=== PATIENT | female | born 1945 | race Two or more races ===

== ENCOUNTER 2016-08-18 13:03 | Inpatient (IN) | payer MEDICARE ==
[~2016-08-18] VITALS: Ht 162.6 cm; Wt 54.4 kg
[2016-08-18] MEDS ORDERED: IV NS 0.9% 1,000 ML BAG IV ONE ×2 (13:30→14:30)
[2016-08-18 13:34] LABS: BASOPHILS # (AUTO) 0.6 /CMM (0.0-0.2); BASOPHILS % (AUTO) 2.8 % (0.0-2.0); DIFF TOTAL % 100 %; EOSINOPHILS % (AUTO) 0.1 % (0.0-6.0); HEMATOCRIT 55 % (33-45); HEMOGLOBIN 17.4 g/dL (11.5-14.8); LYMPHOCYTES # (AUTO) 1.5 /CMM (0.8-4.8); LYMPHOCYTES % (AUTO) 6.6 % (20.0-44.0); MEAN CORPUSCULAR HEMOGLOBIN 31 PG (26.0-33.0); MEAN CORPUSCULAR HGB CONC 32 g/dl (31.0-36.0); MEAN CORPUSCULAR VOLUME 96 fL (82-100); MONOCYTES # (AUTO) 0.4 /CMM (0.1-1.30); MONOCYTES % (AUTO) 1.6 % (2.0-12.0); NEUTROPHILS # (AUTO) 19.8 /CMM (1.8-8.9); NEUTROPHILS % (AUTO) 88.9 % (43.0-81.0); PLATELET COUNT (AUTO) 342 /CMM (150-450); RED BLOOD CELL COUNT(AUTO) 5.67 MIL/uL (4.0-5.2); WHITE BLOOD COUNT (AUTO) 22.3 K/uL (4.3-11.0)
[2016-08-18] MEDS ORDERED: IV NS 0.9% 1,000 ML ONE ×2 (13:39→14:25)
[2016-08-18] MEDS ORDERED: IV SET PRIMARY PUMP SET 1 EA INFUS.SET MC ONE ×5 (13:39→18:11)
[2016-08-18] MEDS ORDERED: GALA12TA PO (13:46)
[2016-08-18] MEDS ORDERED: CARB-94 PO (13:46)
[2016-08-18] MEDS ORDERED: ZINC220C8 PO (13:46)
[2016-08-18] MEDS ORDERED: ASCO500T9 PO (13:46)
[2016-08-18] MEDS ORDERED: BUPR75TA8 PO (13:46)
[2016-08-18] MEDS ORDERED: CARB1TAB60 PO (13:46)
[2016-08-18] MEDS ORDERED: MULT-24 PO (13:46)
[2016-08-18] MEDS ORDERED: QUET25TA PO (13:46)
[2016-08-18] MEDS ORDERED: IRBE300T19 PO (13:46)
[2016-08-18] MEDS ORDERED: ATOR10TA PO (13:46)
[2016-08-18] MEDS ORDERED: OMEP20CA10 PO (13:46)
[2016-08-18 13:50] LABS: INR 1.16 (0.87-1.13); PROTHROMBIN TIME 12.2 SECS (9.5-12.7)
[2016-08-18 13:51] LABS: ALBUMIN 2.8 g/dL (3.4-5.0); BILIRUBIN,DIRECT 0.1 mg/dL (0.0-0.2); BILIRUBIN,TOTAL 0.4 mg/dL (0.2-1.0); CALCIUM, SERUM 9.4 mg/dL (8.5-10.1); CREATININE 1.1 mg/dL (0.6-1.3); INDIRECT BILIRUBIN 0.3 mg/dL (0.0-1.1); POTASSIUM 3.6 mmol/L (3.5-5.1); TOTAL PROTEIN, SERUM 7.9 g/dL (6.4-8.2)
[2016-08-18 13:57] LABS: KETONES,URINE Negative (NEGATIVE); LEUKOCYTE ESTERASE ,URINE Small (NEGATIVE); PH,URINE 5.5 (5.0-8.0)
[2016-08-18 13:58] LABS: TROPONIN I 0.019 ng/mL (0.00-0.056)
[2016-08-18 14:06] LABS: LACTIC ACID 1.3 mmol/L (0.4-2.0)
[2016-08-18 14:06] LABS: ADD UA MICROSCOPIC YES
[2016-08-18 14:07] LABS: ADD URINE CULTURE YES; RBC,URINE 0-2 /HPF (0-2)
[2016-08-18] MEDS ORDERED: LEVOFLOXACIN 750 MG /D5W 150ML 150 ML IV ONE ×2 (14:30→14:35)
[2016-08-18] MEDS ORDERED: PIPERACILLIN /TAZOBACTAM 3.375 G in IV D5W 50 ML IV ONE (14:30)
[2016-08-18 15:56] LABS: EOSINOPHILS % (MANUAL) 0 % (0-4); LYMPHOCYTES % (MANUAL) 6 % (16-48)
[2016-08-18 15:57] LABS: BASOPHILS % (MANUAL) 0 % (0.0-2.0); PLATELET ESTIMATE ADEQUATE; RBC MORPHOLOGY COMMENT NORMAL RBC MORPH
[2016-08-18] MEDS ORDERED: IV 1/2NS 1000 ML 1,000 ML IV PRN (16:37)
[2016-08-18 16:40] VITALS: BP 128/80
[2016-08-18] MEDS ORDERED: MAG HYDROX/AL HYDROX/SIMETH 30 ML UDC PO PRN (17:00)
[2016-08-18] MEDS: CARBIDOPA/LEVODOPA 25/250 MG 1 UDTAB PO SCH (17:00)
[2016-08-18] MEDS ORDERED: Z GUARD REMEDY 2 OZ OINT TP PRN (17:00)
[2016-08-18] MEDS ORDERED: ONDANSETRON HCL/PF 4 MG/2 ML VIAL IVP PRN (17:00)
[2016-08-18] MEDS ORDERED: HYDROCODONE/APAP 5/325MG 1 EACH TABLET PO PRN (17:00)
[2016-08-18] MEDS: buPROPion 75 MG TABLET PO SCH (17:00)
[2016-08-18] MEDS ORDERED: ACETAMINOPHEN 325 MG TABLET PO PRN (17:00)
[2016-08-18] MEDS ORDERED: MAGNESIUM HYDROXIDE 30 ML UDC PO PRN (17:00)
[2016-08-18] MEDS ORDERED: ZOLPIDEM TARTRATE 5 MG TABLET PO PRN (17:00)
[2016-08-18] MEDS: GALANTAMINE HYDROBROMIDE 4 MG TABLET PO SCH (17:30)
[2016-08-18] MEDS ORDERED: FEE PK DOSING 1 MIN EA MC ONE (18:46)
[2016-08-18 20:00] VITALS: BP 135/84
[2016-08-18] MEDS ORDERED: SECONDARY IV SET 1 EA INFUS.SET MC ONE (20:20)
[2016-08-18] MEDS: VANCOMYCIN 1 GM in IV D5W 250 ML IV SCH (20:25)
[2016-08-18 20:52] LABS: CALCIUM, SERUM 8.2 mg/dL (8.5-10.1); CREATININE 1.1 mg/dL (0.6-1.3); POTASSIUM 3.3 mmol/L (3.5-5.1)
[2016-08-18] MEDS: CARBIDOPA/LEV CR 50/200 MG 1 UDTAB.SA PO SCH (22:00)
[2016-08-18] MEDS: ATORVASTATIN 10 MG TABLET PO SCH (22:00)
[2016-08-18] MEDS: QUETIAPINE FUMARATE 25 MG TABLET PO SCH (22:00)
[2016-08-18] MEDS ORDERED: IV D5W 1,000 ML IV ONE (23:19)
[2016-08-18] MEDS: IV D5W 1,000 ML IV PRN (23:24)
[2016-08-19] VITALS: BP 133/86
[2016-08-19] MEDS ORDERED: SECONDARY IV SET 1 EA INFUS.SET MC ONE (01:19)
[2016-08-19] MEDS: PIPERACILLIN /TAZOBACTAM 3.375 G in IV D5W 50 ML IV SCH ×4 (01:22→17:51)
[2016-08-19 04:00] VITALS: BP 130/78
[2016-08-19 06:51] LABS: DIFF TOTAL % 100 %; EOSINOPHILS % (AUTO) 0.1 % (0.0-6.0); HEMATOCRIT 43 % (33-45); HEMOGLOBIN 14.1 g/dL (11.5-14.8); LYMPHOCYTES # (AUTO) 1.1 /CMM (0.8-4.8); LYMPHOCYTES % (AUTO) 5.9 % (20.0-44.0); MEAN CORPUSCULAR HEMOGLOBIN 31 PG (26.0-33.0); MEAN CORPUSCULAR HGB CONC 33 g/dl (31.0-36.0); MEAN CORPUSCULAR VOLUME 96 fL (82-100); MONOCYTES # (AUTO) 0.4 /CMM (0.1-1.30); MONOCYTES % (AUTO) 2.2 % (2.0-12.0); NEUTROPHILS # (AUTO) 16.9 /CMM (1.8-8.9); NEUTROPHILS % (AUTO) 91.8 % (43.0-81.0); PLATELET COUNT (AUTO) 256 /CMM (150-450); WHITE BLOOD COUNT (AUTO) 18.5 K/uL (4.3-11.0)
[2016-08-19 07:13] LABS: CALCIUM, SERUM 8.5 mg/dL (8.5-10.1); PHOSPHORUS 2.7 mg/dL (2.5-4.9); POTASSIUM 3.4 mmol/L (3.5-5.1)
[2016-08-19] MEDS: PANTOPRAZOLE 40 MG TABLET.DR PO SCH (07:30)
[2016-08-19 08:00] VITALS: BP 128/87
[2016-08-19] MEDS: CARBIDOPA/LEVODOPA 25/250 MG 1 UDTAB PO SCH ×3 (08:19→16:21)
[2016-08-19] MEDS: MULTIVITAMINS,THERAPEUTIC 1 UDTAB TABLET PO SCH (08:19)
[2016-08-19] MEDS: ZINC SULFATE 220 MG CAPSULE PO SCH (08:19)
[2016-08-19] MEDS: buPROPion 75 MG TABLET PO SCH ×2 (08:19→16:21)
[2016-08-19] MEDS: GALANTAMINE HYDROBROMIDE 4 MG TABLET PO SCH ×2 (08:19→16:21)
[2016-08-19] MEDS: IV D5W 1,000 ML IV PRN (08:49)
[2016-08-19] MEDS: VANCOMYCIN 1 GM in IV D5W 250 ML IV SCH (13:56)
[2016-08-19 16:00] VITALS: BP 111/66
[2016-08-19] MEDS ORDERED: POTASSIUM CHLORIDE 20 MEQ TAB.PRT.SR PO SCH (16:00)
[2016-08-19] MEDS: POTASSIUM CL. PREMIX PERIPHER. 50 ML IV SCH ×2 (16:26→18:29)
[2016-08-19 20:00] VITALS: BP_SYST 103; BP_SYST 109; BP_DIAS 62; BP_DIAS 75
[2016-08-19] MEDS: HYDROGEL DRESSING 90 GM TUBE TP SCH (21:34)
[2016-08-19] MEDS: ATORVASTATIN 10 MG TABLET PO SCH (22:00)
[2016-08-19] MEDS: CARBIDOPA/LEV CR 50/200 MG 1 UDTAB.SA PO SCH (22:00)
[2016-08-19] MEDS: QUETIAPINE FUMARATE 25 MG TABLET PO SCH (22:00)
[2016-08-20] MEDS: PIPERACILLIN /TAZOBACTAM 3.375 G in IV D5W 50 ML IV SCH ×6 (00:51→23:49)
[2016-08-20] MEDS: IV D5W 1,000 ML IV PRN ×2 (05:47→18:50)
[2016-08-20 07:12] LABS: CALCIUM, SERUM 8.6 mg/dL (8.5-10.1); CREATININE 0.9 mg/dL (0.6-1.3); POTASSIUM 3.4 mmol/L (3.5-5.1)
[2016-08-20] MEDS: PANTOPRAZOLE 40 MG TABLET.DR PO SCH (07:30)
[2016-08-20 08:00] VITALS: BP 120/58
[2016-08-20] MEDS: GALANTAMINE HYDROBROMIDE 4 MG TABLET PO SCH ×2 (08:21→17:00)
[2016-08-20] MEDS: MULTIVITAMINS,THERAPEUTIC 1 UDTAB TABLET PO SCH (08:21)
[2016-08-20] MEDS: CARBIDOPA/LEVODOPA 25/250 MG 1 UDTAB PO SCH ×2 (08:21→13:00)
[2016-08-20] MEDS: buPROPion 75 MG TABLET PO SCH ×2 (08:21→17:00)
[2016-08-20] MEDS: ZINC SULFATE 220 MG CAPSULE PO SCH (08:22)
[2016-08-20] MEDS: VANCOMYCIN 1 GM in IV D5W 250 ML IV SCH (09:28)
[2016-08-20] MEDS ORDERED: Z GUARD REMEDY 4 OZ OINT TP PRN (11:00)
[2016-08-20] MEDS ORDERED: SECONDARY IV SET 1 EA INFUS.SET MC ONE (11:13)
[2016-08-20] MEDS: POTASSIUM CL. PREMIX PERIPHER. 50 ML IV SCH ×2 (11:30→13:30)
[2016-08-20] MEDS: HYDROGEL DRESSING 90 GM TUBE TP SCH ×2 (11:30→21:20)
[2016-08-20] MEDS ORDERED: NUTREN PULMONARY 1,000 ML BAG GT SCH (11:30)
[2016-08-20] MEDS ORDERED: IV SET PRIMARY PUMP SET 1 EA INFUS.SET MC ONE (11:36)
[2016-08-20] MEDS: ALBUTEROL FS 2.5 MG/0.5 ML VIAL.NEB NEB SCH ×4 (12:00→23:30)
[2016-08-20 16:00] VITALS: BP 118/60
[2016-08-20] MEDS: CARBIDOPA/LEVODOPA 25/250 MG 1 UDTAB NG SCH (17:00)
[2016-08-20] MEDS: NUTREN PULMONARY 1,000 ML BAG NG SCH (17:10)
[2016-08-20] MEDS: Z GUARD REMEDY 2 OZ OINT TP SCH (17:54)
[2016-08-20 20:00] VITALS: BP 118/76
[2016-08-20] MEDS: ATORVASTATIN 10 MG TABLET PO SCH (21:20)
[2016-08-20] MEDS: CARBIDOPA/LEV CR 50/200 MG 1 UDTAB.SA PO SCH (21:20)
[2016-08-20] MEDS: QUETIAPINE FUMARATE 25 MG TABLET PO SCH (21:20)
[2016-08-20 22:00] VITALS: BP 118/76
[2016-08-21] MEDS: VANCOMYCIN 1 GM in IV D5W 250 ML IV SCH (01:51)
[2016-08-21] MEDS: ALBUTEROL FS 2.5 MG/0.5 ML VIAL.NEB NEB SCH ×6 (03:14→22:48)
[2016-08-21] MEDS: IV D5W 1,000 ML IV PRN (05:50)
[2016-08-21] MEDS: PIPERACILLIN /TAZOBACTAM 3.375 G in IV D5W 50 ML IV SCH ×4 (05:51→23:35)
[2016-08-21 07:19] LABS: CALCIUM, SERUM 8.2 mg/dL (8.5-10.1); CREATININE 0.7 mg/dL (0.6-1.3); POTASSIUM 2.9 mmol/L (3.5-5.1)
[2016-08-21 08:00] VITALS: BP 114/60
[2016-08-21] MEDS: CARBIDOPA/LEVODOPA 25/250 MG 1 UDTAB NG SCH ×3 (08:02→17:25)
[2016-08-21] MEDS: buPROPion 75 MG TABLET PO SCH ×2 (08:02→17:26)
[2016-08-21] MEDS: ZINC SULFATE 220 MG CAPSULE PO SCH (08:02)
[2016-08-21] MEDS: PANTOPRAZOLE 40 MG TABLET.DR PO SCH (08:02)
[2016-08-21] MEDS: GALANTAMINE HYDROBROMIDE 4 MG TABLET PO SCH ×2 (08:02→17:26)
[2016-08-21] MEDS: MULTIVITAMINS,THERAPEUTIC 1 UDTAB TABLET PO SCH (08:02)
[2016-08-21] MEDS: HYDROGEL DRESSING 90 GM TUBE TP SCH ×2 (08:03→20:44)
[2016-08-21] MEDS: Z GUARD REMEDY 2 OZ OINT TP SCH ×2 (08:03→17:44)
[2016-08-21] MEDS ORDERED: POTASSIUM CL. PREMIX PERIPHER. 50 ML IV SCH (09:51)
[2016-08-21] MEDS ORDERED: IV SET PRIMARY PUMP SET 1 EA INFUS.SET MC ONE (10:28)
[2016-08-21] MEDS ORDERED: POTASSIUM CHLORIDE 20 MEQ POWDER PACKET GT ONE (10:30)
[2016-08-21] MEDS: POTASSIUM CL. PREMIX PERIPHER. 50 ML IV SCH ×2 (10:32→11:16)
[2016-08-21 11:54] LABS: BASOPHILS % (AUTO) 0.2 % (0.0-2.0); DIFF TOTAL % 100 %; EOSINOPHILS # (AUTO) 0.3 /CMM (0.0-0.7); EOSINOPHILS % (AUTO) 2.2 % (0.0-6.0); HEMATOCRIT 41 % (33-45); HEMOGLOBIN 13.3 g/dL (11.5-14.8); LYMPHOCYTES # (AUTO) 1.3 /CMM (0.8-4.8); LYMPHOCYTES % (AUTO) 8.8 % (20.0-44.0); MEAN CORPUSCULAR HEMOGLOBIN 31 PG (26.0-33.0); MEAN CORPUSCULAR HGB CONC 32 g/dl (31.0-36.0); MEAN CORPUSCULAR VOLUME 96 fL (82-100); MONOCYTES # (AUTO) 0.2 /CMM (0.1-1.30); MONOCYTES % (AUTO) 1.7 % (2.0-12.0); NEUTROPHILS # (AUTO) 12.8 /CMM (1.8-8.9); NEUTROPHILS % (AUTO) 87.1 % (43.0-81.0); PLATELET COUNT (AUTO) 191 /CMM (150-450); RED BLOOD CELL COUNT(AUTO) 4.28 MIL/uL (4.0-5.2); WHITE BLOOD COUNT (AUTO) 14.8 K/uL (4.3-11.0)
[2016-08-21] MEDS ORDERED: SECONDARY IV SET 1 EA INFUS.SET MC ONE ×2 (14:14→17:46)
[2016-08-21] MEDS: VANCOMYCIN 0.75 GM in IV D5W 250 ML IV SCH (14:21)
[2016-08-21 16:00] VITALS: BP 106/60
[2016-08-21 19:58] VITALS: BP 105/66
[2016-08-21] MEDS: QUETIAPINE FUMARATE 25 MG TABLET PO SCH (21:24)
[2016-08-21] MEDS: ATORVASTATIN 10 MG TABLET PO SCH (21:24)
[2016-08-21] MEDS: CARBIDOPA/LEV CR 50/200 MG 1 UDTAB.SA PO SCH (21:24)
[2016-08-21 22:00] VITALS: BP 104/54
[2016-08-22] MEDS: VANCOMYCIN 0.75 GM in IV D5W 250 ML IV SCH ×2 (02:49→15:57)
[2016-08-22] MEDS: ALBUTEROL FS 2.5 MG/0.5 ML VIAL.NEB NEB SCH ×6 (03:40→23:57)
[2016-08-22] MEDS: IV D5W 1,000 ML IV PRN ×2 (05:44→23:52)
[2016-08-22 07:31] LABS: BASOPHILS % (AUTO) 0.2 % (0.0-2.0); DIFF TOTAL % 100 %; EOSINOPHILS # (AUTO) 0.2 /CMM (0.0-0.7); EOSINOPHILS % (AUTO) 1.8 % (0.0-6.0); HEMATOCRIT 37 % (33-45); HEMOGLOBIN 12.3 g/dL (11.5-14.8); LYMPHOCYTES % (AUTO) 9.8 % (20.0-44.0); MEAN CORPUSCULAR HEMOGLOBIN 31 PG (26.0-33.0); MEAN CORPUSCULAR HGB CONC 33 g/dl (31.0-36.0); MEAN CORPUSCULAR VOLUME 94 fL (82-100); MONOCYTES # (AUTO) 0.2 /CMM (0.1-1.30); MONOCYTES % (AUTO) 1.7 % (2.0-12.0); NEUTROPHILS % (AUTO) 86.5 % (43.0-81.0); PLATELET COUNT (AUTO) 183 /CMM (150-450); RED BLOOD CELL COUNT(AUTO) 3.96 MIL/uL (4.0-5.2); WHITE BLOOD COUNT (AUTO) 10.4 K/uL (4.3-11.0)
[2016-08-22 07:55] LABS: CALCIUM, SERUM 7.8 mg/dL (8.5-10.1); CREATININE 0.7 mg/dL (0.6-1.3); POTASSIUM 3.2 mmol/L (3.5-5.1)
[2016-08-22 08:00] VITALS: BP 99/63
[2016-08-22] MEDS: GALANTAMINE HYDROBROMIDE 4 MG TABLET PO SCH ×2 (09:00→17:07)
[2016-08-22] MEDS: MULTIVITAMINS,THERAPEUTIC 1 UDTAB TABLET PO SCH ×2 (10:00→10:36)
[2016-08-22] MEDS: CARBIDOPA/LEVODOPA 25/250 MG 1 UDTAB NG SCH ×4 (10:00→17:07)
[2016-08-22] MEDS: ZINC SULFATE 220 MG CAPSULE PO SCH ×2 (10:00→10:36)
[2016-08-22] MEDS: PANTOPRAZOLE 40 MG TABLET.DR PO SCH (10:00)
[2016-08-22] MEDS: Z GUARD REMEDY 2 OZ OINT TP SCH ×2 (10:00→17:08)
[2016-08-22] MEDS: HYDROGEL DRESSING 90 GM TUBE TP SCH ×2 (10:00→21:40)
[2016-08-22] MEDS: buPROPion 75 MG TABLET PO SCH ×2 (10:36→17:07)
[2016-08-22] MEDS: PIPERACILLIN /TAZOBACTAM 3.375 G in IV D5W 50 ML IV SCH ×4 (12:03→23:53)
[2016-08-22] MEDS: POTASSIUM CL. PREMIX PERIPHER. 50 ML IV SCH ×4 (13:14→17:04)
[2016-08-22 16:00] VITALS: BP 106/71
[2016-08-22 20:00] VITALS: BP 97/61
[2016-08-22] MEDS: ATORVASTATIN 10 MG TABLET PO SCH (21:41)
[2016-08-22] MEDS: CARBIDOPA/LEV CR 50/200 MG 1 UDTAB.SA PO SCH (21:41)
[2016-08-22] MEDS: QUETIAPINE FUMARATE 25 MG TABLET PO SCH (21:41)
[2016-08-22 22:00] VITALS: BP 97/61
[2016-08-23] MEDS: VANCOMYCIN 0.75 GM in IV D5W 250 ML IV SCH ×2 (02:09→14:34)
[2016-08-23] MEDS: ALBUTEROL FS 2.5 MG/0.5 ML VIAL.NEB NEB SCH ×6 (03:28→23:36)
[2016-08-23] MEDS: PIPERACILLIN /TAZOBACTAM 3.375 G in IV D5W 50 ML IV SCH ×4 (06:07→23:33)
[2016-08-23 07:31] LABS: BASOPHILS % (AUTO) 0.2 % (0.0-2.0); DIFF TOTAL % 100 %; EOSINOPHILS # (AUTO) 0.2 /CMM (0.0-0.7); EOSINOPHILS % (AUTO) 1.7 % (0.0-6.0); HEMATOCRIT 41 % (33-45); HEMOGLOBIN 13.6 g/dL (11.5-14.8); LYMPHOCYTES # (AUTO) 1.2 /CMM (0.8-4.8); LYMPHOCYTES % (AUTO) 8.9 % (20.0-44.0); MEAN CORPUSCULAR HEMOGLOBIN 31 PG (26.0-33.0); MEAN CORPUSCULAR HGB CONC 33 g/dl (31.0-36.0); MEAN CORPUSCULAR VOLUME 94 fL (82-100); MONOCYTES # (AUTO) 0.5 /CMM (0.1-1.30); MONOCYTES % (AUTO) 3.3 % (2.0-12.0); NEUTROPHILS # (AUTO) 11.7 /CMM (1.8-8.9); NEUTROPHILS % (AUTO) 85.9 % (43.0-81.0); PLATELET COUNT (AUTO) 192 /CMM (150-450); WHITE BLOOD COUNT (AUTO) 13.6 K/uL (4.3-11.0)
[2016-08-23 08:00] VITALS: BP 100/63
[2016-08-23 08:22] LABS: CALCIUM, SERUM 8.3 mg/dL (8.5-10.1); CREATININE 0.7 mg/dL (0.6-1.3); POTASSIUM 3.7 mmol/L (3.5-5.1)
[2016-08-23] MEDS: GALANTAMINE HYDROBROMIDE 4 MG TABLET PO SCH ×2 (08:23→16:25)
[2016-08-23] MEDS: buPROPion 75 MG TABLET PO SCH ×2 (08:23→16:25)
[2016-08-23] MEDS: PANTOPRAZOLE 40 MG TABLET.DR PO SCH (08:23)
[2016-08-23] MEDS: NUTREN PULMONARY 1,000 ML BAG NG SCH (08:25)
[2016-08-23] MEDS: HYDROGEL DRESSING 90 GM TUBE TP SCH ×2 (08:36→21:50)
[2016-08-23] MEDS: MULTIVITAMINS,THERAPEUTIC 1 UDTAB TABLET PO SCH (08:49)
[2016-08-23] MEDS: ZINC SULFATE 220 MG CAPSULE PO SCH (08:49)
[2016-08-23] MEDS: Z GUARD REMEDY 2 OZ OINT TP SCH ×2 (08:49→16:39)
[2016-08-23] MEDS: CARBIDOPA/LEVODOPA 25/250 MG 1 UDTAB NG SCH ×2 (12:15→16:25)
[2016-08-23 16:00] VITALS: BP 113/63
[2016-08-23] MEDS: IV D5W 1,000 ML IV PRN (17:13)
[2016-08-23 19:50] VITALS: BP 112/69
[2016-08-23 20:00] VITALS: BP 112/69
[2016-08-23] MEDS: ATORVASTATIN 10 MG TABLET PO SCH (21:49)
[2016-08-23] MEDS: CARBIDOPA/LEV CR 50/200 MG 1 UDTAB.SA PO SCH (21:49)
[2016-08-23] MEDS: QUETIAPINE FUMARATE 25 MG TABLET PO SCH (21:49)
[2016-08-24] MEDS ORDERED: IV SET PRIMARY PUMP SET 1 EA INFUS.SET MC ONE (02:06)
[2016-08-24] MEDS ORDERED: SECONDARY IV SET 1 EA INFUS.SET MC ONE ×2 (02:06→13:06)
[2016-08-24] MEDS: VANCOMYCIN 0.75 GM in IV D5W 250 ML IV SCH ×2 (02:10→15:19)
[2016-08-24] MEDS: IV D5W 1,000 ML IV PRN (02:16)
[2016-08-24] MEDS: NUTREN PULMONARY 1,000 ML BAG NG SCH (02:38)
[2016-08-24] MEDS: ALBUTEROL FS 2.5 MG/0.5 ML VIAL.NEB NEB SCH ×6 (03:39→23:30)
[2016-08-24] MEDS: PIPERACILLIN /TAZOBACTAM 3.375 G in IV D5W 50 ML IV SCH ×3 (05:05→18:20)
[2016-08-24 08:00] VITALS: BP 102/64
[2016-08-24 08:05] LABS: BASOPHILS % (AUTO) 0.1 % (0.0-2.0); DIFF TOTAL % 100 %; EOSINOPHILS # (AUTO) 0.3 /CMM (0.0-0.7); HEMATOCRIT 36 % (33-45); HEMOGLOBIN 12.1 g/dL (11.5-14.8); LYMPHOCYTES % (AUTO) 9.3 % (20.0-44.0); MEAN CORPUSCULAR HEMOGLOBIN 32 PG (26.0-33.0); MEAN CORPUSCULAR HGB CONC 34 g/dl (31.0-36.0); MEAN CORPUSCULAR VOLUME 94 fL (82-100); MONOCYTES # (AUTO) 0.3 /CMM (0.1-1.30); MONOCYTES % (AUTO) 3.2 % (2.0-12.0); NEUTROPHILS # (AUTO) 8.9 /CMM (1.8-8.9); NEUTROPHILS % (AUTO) 84.4 % (43.0-81.0); PLATELET COUNT (AUTO) 218 /CMM (150-450); RED BLOOD CELL COUNT(AUTO) 3.85 MIL/uL (4.0-5.2); WHITE BLOOD COUNT (AUTO) 10.5 K/uL (4.3-11.0)
[2016-08-24 08:14] LABS: CALCIUM, SERUM 8.1 mg/dL (8.5-10.1); CREATININE 0.5 mg/dL (0.6-1.3); POTASSIUM 3.3 mmol/L (3.5-5.1)
[2016-08-24] MEDS: GALANTAMINE HYDROBROMIDE 4 MG TABLET PO SCH ×2 (09:37→18:20)
[2016-08-24] MEDS: CARBIDOPA/LEVODOPA 25/250 MG 1 UDTAB NG SCH ×3 (09:37→18:20)
[2016-08-24] MEDS: PANTOPRAZOLE 40 MG TABLET.DR PO SCH (09:37)
[2016-08-24] MEDS: ZINC SULFATE 220 MG CAPSULE PO SCH (09:38)
[2016-08-24] MEDS: MULTIVITAMINS,THERAPEUTIC 1 UDTAB TABLET PO SCH (09:38)
[2016-08-24] MEDS: Z GUARD REMEDY 2 OZ OINT TP SCH ×2 (09:38→18:24)
[2016-08-24] MEDS: buPROPion 75 MG TABLET PO SCH ×2 (09:38→18:20)
[2016-08-24] MEDS: HYDROGEL DRESSING 90 GM TUBE TP SCH ×2 (09:39→22:55)
[2016-08-24] MEDS: POTASSIUM CL. PREMIX PERIPHER. 50 ML IV SCH ×2 (13:14→14:28)
[2016-08-24 18:34] LABS: INR 0.97 (0.87-1.13); PROTHROMBIN TIME 10.5 SECS (9.5-12.7)
[2016-08-24 20:00] VITALS: BP 108/66
[2016-08-24 20:31] VITALS: BP 108/66
[2016-08-24] MEDS: ATORVASTATIN 10 MG TABLET PO SCH (22:55)
[2016-08-24] MEDS: QUETIAPINE FUMARATE 25 MG TABLET PO SCH (22:55)
[2016-08-24] MEDS: CARBIDOPA/LEV CR 50/200 MG 1 UDTAB.SA PO SCH (22:55)
[2016-08-25] VITALS (10 sets, daily range): BP systolic 121–137; BP diastolic 64–100
[2016-08-25] MEDS: PIPERACILLIN /TAZOBACTAM 3.375 G in IV D5W 50 ML IV SCH ×4 (00:10→18:01)
[2016-08-25] MEDS: VANCOMYCIN 0.75 GM in IV D5W 250 ML IV SCH ×2 (01:00→13:05)
[2016-08-25] MEDS: ALBUTEROL FS 2.5 MG/0.5 ML VIAL.NEB NEB SCH ×6 (04:00→23:43)
[2016-08-25] MEDS: PANTOPRAZOLE 40 MG TABLET.DR PO SCH (07:30)
[2016-08-25 07:44] LABS: BASOPHILS % (AUTO) 0.2 % (0.0-2.0); DIFF TOTAL % 100 %; EOSINOPHILS # (AUTO) 0.1 /CMM (0.0-0.7); EOSINOPHILS % (AUTO) 1.5 % (0.0-6.0); HEMATOCRIT 37 % (33-45); HEMOGLOBIN 12.4 g/dL (11.5-14.8); LYMPHOCYTES # (AUTO) 0.8 /CMM (0.8-4.8); LYMPHOCYTES % (AUTO) 8.1 % (20.0-44.0); MEAN CORPUSCULAR HEMOGLOBIN 32 PG (26.0-33.0); MEAN CORPUSCULAR HGB CONC 33 g/dl (31.0-36.0); MEAN CORPUSCULAR VOLUME 95 fL (82-100); MONOCYTES # (AUTO) 0.3 /CMM (0.1-1.30); MONOCYTES % (AUTO) 3.4 % (2.0-12.0); NEUTROPHILS # (AUTO) 8.3 /CMM (1.8-8.9); NEUTROPHILS % (AUTO) 86.8 % (43.0-81.0); PLATELET COUNT (AUTO) 218 /CMM (150-450); RED BLOOD CELL COUNT(AUTO) 3.93 MIL/uL (4.0-5.2); WHITE BLOOD COUNT (AUTO) 9.6 K/uL (4.3-11.0)
[2016-08-25 07:50] LABS: INR 0.97 (0.87-1.13); PROTHROMBIN TIME 10.5 SECS (9.5-12.7)
[2016-08-25 08:00] LABS: CALCIUM, SERUM 8.3 mg/dL (8.5-10.1); CREATININE 0.7 mg/dL (0.6-1.3); POTASSIUM 3.7 mmol/L (3.5-5.1)
[2016-08-25] MEDS: MULTIVITAMINS,THERAPEUTIC 1 UDTAB TABLET PO SCH (09:00)
[2016-08-25] MEDS: buPROPion 75 MG TABLET PO SCH ×2 (09:00→17:00)
[2016-08-25] MEDS: GALANTAMINE HYDROBROMIDE 4 MG TABLET PO SCH ×2 (09:00→17:00)
[2016-08-25] MEDS: ZINC SULFATE 220 MG CAPSULE PO SCH (09:00)
[2016-08-25] MEDS: CARBIDOPA/LEVODOPA 25/250 MG 1 UDTAB NG SCH ×3 (09:00→17:00)
[2016-08-25] MEDS: HYDROGEL DRESSING 90 GM TUBE TP SCH ×2 (10:25→21:36)
[2016-08-25] MEDS: Z GUARD REMEDY 2 OZ OINT TP SCH ×2 (10:25→18:03)
[2016-08-25] MEDS: IV D5W 1,000 ML IV PRN (13:01)
[2016-08-25] MEDS: NUTREN PULMONARY 1,000 ML BAG NG SCH (21:14)
[2016-08-25] MEDS: CARBIDOPA/LEV CR 50/200 MG 1 UDTAB.SA PO SCH (21:52)
[2016-08-25] MEDS: ATORVASTATIN 10 MG TABLET PO SCH (21:58)
[2016-08-25] MEDS: QUETIAPINE FUMARATE 25 MG TABLET PO SCH (21:58)
[2016-08-26] MEDS: PIPERACILLIN /TAZOBACTAM 3.375 G in IV D5W 50 ML IV SCH ×4 (00:40→17:23)
[2016-08-26] MEDS: VANCOMYCIN 0.75 GM in IV D5W 250 ML IV SCH ×2 (01:15→14:43)
[2016-08-26] MEDS: ALBUTEROL FS 2.5 MG/0.5 ML VIAL.NEB NEB SCH ×6 (03:42→23:49)
[2016-08-26 07:09] LABS: BASOPHILS % (AUTO) 0.2 % (0.0-2.0); DIFF TOTAL % 100 %; EOSINOPHILS % (AUTO) 0.1 % (0.0-6.0); HEMATOCRIT 38 % (33-45); HEMOGLOBIN 12.2 g/dL (11.5-14.8); LYMPHOCYTES # (AUTO) 0.8 /CMM (0.8-4.8); MEAN CORPUSCULAR HEMOGLOBIN 31 PG (26.0-33.0); MEAN CORPUSCULAR HGB CONC 33 g/dl (31.0-36.0); MEAN CORPUSCULAR VOLUME 94 fL (82-100); MONOCYTES # (AUTO) 0.4 /CMM (0.1-1.30); MONOCYTES % (AUTO) 3.5 % (2.0-12.0); NEUTROPHILS # (AUTO) 11.2 /CMM (1.8-8.9); NEUTROPHILS % (AUTO) 90.2 % (43.0-81.0); PLATELET COUNT (AUTO) 242 /CMM (150-450); RED BLOOD CELL COUNT(AUTO) 3.99 MIL/uL (4.0-5.2); WHITE BLOOD COUNT (AUTO) 12.4 K/uL (4.3-11.0)
[2016-08-26 07:45] LABS: CALCIUM, SERUM 8.4 mg/dL (8.5-10.1); CREATININE 0.6 mg/dL (0.6-1.3); POTASSIUM 3.3 mmol/L (3.5-5.1)
[2016-08-26 08:00] VITALS: BP 147/79
[2016-08-26] MEDS: PANTOPRAZOLE 40 MG TABLET.DR PO SCH (08:38)
[2016-08-26] MEDS: CARBIDOPA/LEVODOPA 25/250 MG 1 UDTAB NG SCH ×3 (08:38→17:00)
[2016-08-26] MEDS: MULTIVITAMINS,THERAPEUTIC 1 UDTAB TABLET PO SCH (08:38)
[2016-08-26] MEDS: buPROPion 75 MG TABLET PO SCH ×2 (08:38→17:00)
[2016-08-26] MEDS: GALANTAMINE HYDROBROMIDE 4 MG TABLET PO SCH ×2 (08:38→17:00)
[2016-08-26] MEDS: ZINC SULFATE 220 MG CAPSULE PO SCH (08:38)
[2016-08-26] MEDS: Z GUARD REMEDY 2 OZ OINT TP SCH ×2 (08:39→17:00)
[2016-08-26] MEDS: HYDROGEL DRESSING 90 GM TUBE TP SCH ×2 (08:40→21:16)
[2016-08-26] MEDS ORDERED: POTASSIUM CHLORIDE 20 MEQ TAB.PRT.SR PO ONE (09:30)
[2016-08-26] MEDS: IV D5W 1,000 ML IV PRN (14:44)
[2016-08-26 16:00] VITALS: BP 114/69
[2016-08-26 20:00] VITALS: BP 98/59
[2016-08-26] MEDS: CARBIDOPA/LEV CR 50/200 MG 1 UDTAB.SA PO SCH (21:08)
[2016-08-26] MEDS: QUETIAPINE FUMARATE 25 MG TABLET PO SCH (21:08)
[2016-08-26] MEDS: ATORVASTATIN 10 MG TABLET PO SCH (21:08)
[2016-08-27] MEDS: PIPERACILLIN /TAZOBACTAM 3.375 G in IV D5W 50 ML IV SCH ×3 (00:13→11:54)
[2016-08-27] MEDS: VANCOMYCIN 0.75 GM in IV D5W 250 ML IV SCH ×2 (02:58→13:12)
[2016-08-27] MEDS: ALBUTEROL FS 2.5 MG/0.5 ML VIAL.NEB NEB SCH ×6 (03:46→23:48)
[2016-08-27] MEDS: NUTREN PULMONARY 1,000 ML BAG NG SCH (04:57)
[2016-08-27 06:55] LABS: DIFF TOTAL % 100 %; EOSINOPHILS # (AUTO) 0.1 /CMM (0.0-0.7); EOSINOPHILS % (AUTO) 0.6 % (0.0-6.0); HEMATOCRIT 34 % (33-45); HEMOGLOBIN 11.3 g/dL (11.5-14.8); LYMPHOCYTES # (AUTO) 0.7 /CMM (0.8-4.8); LYMPHOCYTES % (AUTO) 6.8 % (20.0-44.0); MEAN CORPUSCULAR HEMOGLOBIN 31 PG (26.0-33.0); MEAN CORPUSCULAR HGB CONC 33 g/dl (31.0-36.0); MEAN CORPUSCULAR VOLUME 94 fL (82-100); MONOCYTES # (AUTO) 0.4 /CMM (0.1-1.30); MONOCYTES % (AUTO) 3.9 % (2.0-12.0); NEUTROPHILS # (AUTO) 9.1 /CMM (1.8-8.9); NEUTROPHILS % (AUTO) 88.7 % (43.0-81.0); PLATELET COUNT (AUTO) 224 /CMM (150-450); RED BLOOD CELL COUNT(AUTO) 3.63 MIL/uL (4.0-5.2); WHITE BLOOD COUNT (AUTO) 10.2 K/uL (4.3-11.0)
[2016-08-27 07:15] LABS: CALCIUM, SERUM 8.3 mg/dL (8.5-10.1); CREATININE 0.7 mg/dL (0.6-1.3); POTASSIUM 3.7 mmol/L (3.5-5.1)
[2016-08-27 08:00] VITALS: BP 120/72
[2016-08-27] MEDS: ZINC SULFATE 220 MG CAPSULE PO SCH (08:03)
[2016-08-27] MEDS: CARBIDOPA/LEVODOPA 25/250 MG 1 UDTAB NG SCH ×3 (08:03→16:20)
[2016-08-27] MEDS: PANTOPRAZOLE 40 MG TABLET.DR PO SCH (08:03)
[2016-08-27] MEDS: GALANTAMINE HYDROBROMIDE 4 MG TABLET PO SCH ×2 (08:03→16:19)
[2016-08-27] MEDS: MULTIVITAMINS,THERAPEUTIC 1 UDTAB TABLET PO SCH (08:03)
[2016-08-27] MEDS: buPROPion 75 MG TABLET PO SCH ×2 (08:03→16:19)
[2016-08-27] MEDS: Z GUARD REMEDY 2 OZ OINT TP SCH ×2 (08:04→16:20)
[2016-08-27] MEDS: HYDROGEL DRESSING 90 GM TUBE TP SCH ×2 (08:04→22:09)
[2016-08-27 16:00] VITALS: BP 101/67
[2016-08-27] MEDS: LACTOBACILLUS RHAMNOSUS GG 1 EACH CAP.SPRINK GT SCH (16:19)
[2016-08-27] MEDS: IV D5W 1,000 ML IV PRN (19:49)
[2016-08-27] MEDS ORDERED: IV SET PRIMARY PUMP SET 1 EA INFUS.SET MC ONE (19:50)
[2016-08-27 20:00] VITALS: BP 103/62
[2016-08-27 22:00] VITALS: BP 103/62
[2016-08-27] MEDS: ATORVASTATIN 10 MG TABLET PO SCH (22:08)
[2016-08-27] MEDS: QUETIAPINE FUMARATE 25 MG TABLET PO SCH (22:08)
[2016-08-27] MEDS: CARBIDOPA/LEV CR 50/200 MG 1 UDTAB.SA PO SCH (22:08)
[2016-08-28] MEDS: NUTREN PULMONARY 1,000 ML BAG NG SCH (01:51)
[2016-08-28] MEDS: ALBUTEROL FS 2.5 MG/0.5 ML VIAL.NEB NEB SCH ×5 (03:30→19:30)
[2016-08-28] MEDS ORDERED: MULTIVITAMINS,THERAPEUTIC 1 UDTAB TABLET GT SCH (06:00)
[2016-08-28] MEDS ORDERED: MAGNESIUM HYDROXIDE 30 ML UDC GT PRN (06:00)
[2016-08-28] MEDS ORDERED: ZOLPIDEM TARTRATE 5 MG TABLET GT PRN ×2 (06:00→22:00)
[2016-08-28] MEDS ORDERED: GALANTAMINE HYDROBROMIDE 4 MG TABLET GT SCH (06:00)
[2016-08-28] MEDS ORDERED: CARBIDOPA/LEV CR 50/200 MG 1 UDTAB.SA GT SCH ×2 (06:00→22:00)
[2016-08-28] MEDS ORDERED: buPROPion 75 MG TABLET GT SCH (06:00)
[2016-08-28] MEDS ORDERED: ZINC SULFATE 220 MG CAPSULE GT SCH (06:00)
[2016-08-28] MEDS ORDERED: QUETIAPINE FUMARATE 25 MG TABLET GT SCH (06:00)
[2016-08-28] MEDS ORDERED: CARBIDOPA/LEVODOPA 25/250 MG 1 UDTAB GT SCH (06:00)
[2016-08-28] MEDS ORDERED: HYDROCODONE/APAP 5/325MG 1 EACH TABLET GT PRN (06:00)
[2016-08-28] MEDS ORDERED: ACETAMINOPHEN 325 MG TABLET MC PRN (06:00)
[2016-08-28] MEDS ORDERED: ATORVASTATIN 10 MG TABLET GT SCH ×2 (06:00→21:00)
[2016-08-28] MEDS ORDERED: MAG HYDROX/AL HYDROX/SIMETH 30 ML UDC GT PRN ×2 (06:00→09:00)
[2016-08-28 08:00] VITALS: BP 112/71
[2016-08-28 08:04] LABS: CALCIUM, SERUM 8.5 mg/dL (8.5-10.1); CREATININE 0.6 mg/dL (0.6-1.3); POTASSIUM 3.8 mmol/L (3.5-5.1)
[2016-08-28 08:35] LABS: BASOPHILS % (AUTO) 0.2 % (0.0-2.0); DIFF TOTAL % 100 %; EOSINOPHILS # (AUTO) 0.1 /CMM (0.0-0.7); HEMATOCRIT 34 % (33-45); HEMOGLOBIN 11.4 g/dL (11.5-14.8); LYMPHOCYTES # (AUTO) 1.1 /CMM (0.8-4.8); LYMPHOCYTES % (AUTO) 13.3 % (20.0-44.0); MEAN CORPUSCULAR HEMOGLOBIN 31 PG (26.0-33.0); MEAN CORPUSCULAR HGB CONC 34 g/dl (31.0-36.0); MEAN CORPUSCULAR VOLUME 94 fL (82-100); MONOCYTES # (AUTO) 0.4 /CMM (0.1-1.30); MONOCYTES % (AUTO) 5.1 % (2.0-12.0); NEUTROPHILS # (AUTO) 6.6 /CMM (1.8-8.9); NEUTROPHILS % (AUTO) 80.4 % (43.0-81.0); PLATELET COUNT (AUTO) 235 /CMM (150-450); RED BLOOD CELL COUNT(AUTO) 3.65 MIL/uL (4.0-5.2); WHITE BLOOD COUNT (AUTO) 8.2 K/uL (4.3-11.0)
[2016-08-28] MEDS: PANTOPRAZOLE 40 MG/PACK PACK GT SCH ×2 (09:00→09:41)
[2016-08-28] MEDS: GALANTAMINE HYDROBROMIDE 4 MG TABLET GT SCH ×2 (09:37→16:16)
[2016-08-28] MEDS: ZINC SULFATE 220 MG CAPSULE GT SCH (09:38)
[2016-08-28] MEDS: CARBIDOPA/LEVODOPA 25/250 MG 1 UDTAB GT SCH ×3 (09:38→16:16)
[2016-08-28] MEDS: MULTIVITAMINS,THERAPEUTIC 1 UDTAB TABLET GT SCH (09:38)
[2016-08-28] MEDS: LACTOBACILLUS RHAMNOSUS GG 1 EACH CAP.SPRINK GT SCH ×2 (09:38→16:16)
[2016-08-28] MEDS: buPROPion 75 MG TABLET GT SCH ×2 (09:38→16:15)
[2016-08-28] MEDS: HYDROGEL DRESSING 90 GM TUBE TP SCH ×2 (09:39→21:27)
[2016-08-28] MEDS: Z GUARD REMEDY 2 OZ OINT TP SCH ×2 (09:39→16:17)
[2016-08-28 16:00] VITALS: BP 122/69
[2016-08-28 20:00] VITALS: BP_SYST 112; BP_SYST 126; BP_DIAS 53; BP_DIAS 70
[2016-08-28] MEDS: QUETIAPINE FUMARATE 25 MG TABLET GT SCH (21:29)
[2016-08-28] MEDS: CARBIDOPA/LEVODOPA 25/100 MG 1 UDTAB GT SCH (21:29)
[2016-08-28] MEDS: ATORVASTATIN 10 MG TABLET GT SCH (21:30)
[2016-08-29] MEDS: ALBUTEROL FS 2.5 MG/0.5 ML VIAL.NEB NEB SCH ×7 (00:12→23:30)
[2016-08-29] MEDS: IV D5W 1,000 ML IV PRN (01:25)
[2016-08-29] MEDS: NUTREN PULMONARY 1,000 ML BAG NG SCH (05:58)
[2016-08-29 07:45] LABS: CALCIUM, SERUM 8.8 mg/dL (8.5-10.1); CREATININE 0.6 mg/dL (0.6-1.3); POTASSIUM 4.1 mmol/L (3.5-5.1)
[2016-08-29 07:48] LABS: BASOPHILS % (AUTO) 0.4 % (0.0-2.0); DIFF TOTAL % 100 %; EOSINOPHILS # (AUTO) 0.1 /CMM (0.0-0.7); EOSINOPHILS % (AUTO) 0.7 % (0.0-6.0); HEMATOCRIT 35 % (33-45); HEMOGLOBIN 11.7 g/dL (11.5-14.8); MEAN CORPUSCULAR HEMOGLOBIN 31 PG (26.0-33.0); MEAN CORPUSCULAR HGB CONC 34 g/dl (31.0-36.0); MEAN CORPUSCULAR VOLUME 94 fL (82-100); MONOCYTES # (AUTO) 0.4 /CMM (0.1-1.30); NEUTROPHILS # (AUTO) 6.2 /CMM (1.8-8.9); NEUTROPHILS % (AUTO) 80.9 % (43.0-81.0); PLATELET COUNT (AUTO) 231 /CMM (150-450); RED BLOOD CELL COUNT(AUTO) 3.72 MIL/uL (4.0-5.2); WHITE BLOOD COUNT (AUTO) 7.7 K/uL (4.3-11.0)
[2016-08-29 08:00] VITALS: BP 112/71
[2016-08-29] MEDS: buPROPion 75 MG TABLET GT SCH ×2 (09:21→16:58)
[2016-08-29] MEDS: PANTOPRAZOLE 40 MG/PACK PACK GT SCH (09:21)
[2016-08-29] MEDS: CARBIDOPA/LEVODOPA 25/250 MG 1 UDTAB GT SCH ×3 (09:21→16:58)
[2016-08-29] MEDS: GALANTAMINE HYDROBROMIDE 4 MG TABLET GT SCH ×2 (09:21→16:58)
[2016-08-29] MEDS: ZINC SULFATE 220 MG CAPSULE GT SCH (09:22)
[2016-08-29] MEDS: MULTIVITAMINS,THERAPEUTIC 1 UDTAB TABLET GT SCH (09:22)
[2016-08-29] MEDS: Z GUARD REMEDY 2 OZ OINT TP SCH ×2 (09:23→16:59)
[2016-08-29] MEDS: HYDROGEL DRESSING 90 GM TUBE TP SCH ×2 (09:23→22:00)
[2016-08-29] MEDS: LACTOBACILLUS RHAMNOSUS GG 1 EACH CAP.SPRINK GT SCH ×2 (09:32→16:58)
[2016-08-29 16:00] VITALS: BP 112/71
[2016-08-29] MEDS: CARBIDOPA/LEVODOPA 25/100 MG 1 UDTAB GT SCH (22:00)
[2016-08-29] MEDS: QUETIAPINE FUMARATE 25 MG TABLET GT SCH (22:00)
[2016-08-29] MEDS: ATORVASTATIN 10 MG TABLET GT SCH (22:00)
== END 2016-08-30 00:18 | DRG 871 ==
LOC: ER 13:05 → TELE 15:21 → MED 08-19 08:31
PROVIDERS: ADMIT Internal Medicine; ATTEND Internal Medicine
PROC: 0DH63UZ Insertion of Feeding Device into Stomach, Percutaneous Approach (ICD-10-PCS; principal; 2016-08-25 16:21)
DX: A41.9 Sepsis, unspecified organism (principal); J69.0 Pneumonitis due to inhalation of food and vomit; G92 Toxic encephalopathy; N39.0 Urinary tract infection, site not specified; E87.0 Hyperosmolality and hypernatremia; L89.152 Pressure ulcer of sacral region, stage 2; R65.20 Severe sepsis without septic shock; E86.0 Dehydration; E86.1 Hypovolemia; Z66 Do not resuscitate; E87.6 Hypokalemia; E78.5 Hyperlipidemia, unspecified; K21.9 Gastro-esophageal reflux disease without esophagitis; R13.10 Dysphagia, unspecified; G30.9 Alzheimer's disease, unspecified; F02.80 Dementia in other diseases classified elsewhere, unspecified severity, without behavioral disturbance, psychotic disturbance, mood disturbance, and anxiety; I10 Essential (primary) hypertension; Z85.828 Personal history of other malignant neoplasm of skin; I25.10 Atherosclerotic heart disease of native coronary artery without angina pectoris
CPT/HCPCS: 36415; 70450-TC; 71010-TC; 80048-TC; 80061-TC; 80076-TC; 80202-TC; 81000-TC; 83605-TC; 83735-TC; 84100-TC; 84484-TC; 85025-TC; 85610-TC; 85730-TC; 86850-TC; 87040-TC; 87081-TC; 87086-TC; 92611-TC; 94799-TC; A4606; A6248; J1956; J2543; J3370; J3480; J3490; J7030; J7060; J7070; Z7610

== ENCOUNTER 2016-09-03 04:43 | Inpatient (IN) | payer MEDICARE ==
[~2016-09-03] VITALS: Ht 162.6 cm; Wt 37.0 kg
[2016-09-03] VITALS (11 sets, daily range): BP systolic 98–129; BP diastolic 63–79
[~2016-09-03 04:43] MED LIST: ASCO500T9 PO; ATOR10TA PO; BUPR75TA8 PO; CARB-94 PO; CARB1TAB60 PO; GALA12TA PO; IRBE300T19 PO; MULT-24 PO; OMEP20CA10 PO; QUET25TA PO; ZINC220C8 PO
[2016-09-03 05:15] LABS: ADD UA MICROSCOPIC NO; KETONES,URINE NEGATIVE (NEGATIVE); LEUKOCYTE ESTERASE ,URINE NEGATIVE (NEGATIVE)
[2016-09-03 05:22] LABS: BASOPHILS # (AUTO) 0.1 /CMM (0.0-0.2); BASOPHILS % (AUTO) 0.6 % (0.0-2.0); DIFF TOTAL % 100 %; HEMATOCRIT 38 % (33-45); HEMOGLOBIN 12.5 g/dL (11.5-14.8); LYMPHOCYTES # (AUTO) 1.6 /CMM (0.8-4.8); LYMPHOCYTES % (AUTO) 16.2 % (20.0-44.0); MEAN CORPUSCULAR HEMOGLOBIN 31 PG (26.0-33.0); MEAN CORPUSCULAR HGB CONC 33 g/dl (31.0-36.0); MEAN CORPUSCULAR VOLUME 94 fL (82-100); MONOCYTES # (AUTO) 0.5 /CMM (0.1-1.30); MONOCYTES % (AUTO) 4.9 % (2.0-12.0); NEUTROPHILS % (AUTO) 78.3 % (43.0-81.0); PLATELET COUNT (AUTO) 302 /CMM (150-450); RED BLOOD CELL COUNT(AUTO) 4.06 MIL/uL (4.0-5.2); WHITE BLOOD COUNT (AUTO) 10.2 K/uL (4.3-11.0)
[2016-09-03] MEDS ORDERED: MAGN400O6 GT (05:22)
[2016-09-03] MEDS ORDERED: BISA10SU61 RC (05:22)
[2016-09-03] MEDS ORDERED: NA P133E RC (05:22)
[2016-09-03] MEDS ORDERED: DOCU-25 GT (05:22)
[2016-09-03] MEDS ORDERED: PIPERACILLIN /TAZOBACTAM 3.375 G in IV D5W 50 ML IV ONE (05:30)
[2016-09-03] MEDS ORDERED: VANCOMYCIN 1 GM in IV D5W 250 ML IV ONE (05:30)
[2016-09-03 05:32] LABS: ANION GAP 7 (5-14); CALCIUM, SERUM 8.8 mg/dL (8.5-10.1); CARBON DIOXIDE 31 mmol/L (21-32); CHLORIDE 102 mmol/L (98-107); CREATININE 0.7 mg/dL (0.6-1.3); GLUCOSE 112 mg/dL (74-106); SODIUM SERUM 136 mmol/L (136-145); UREA NITROGEN, BLOOD 19 mg/dL (7-18)
[2016-09-03] MEDS ORDERED: IV D5W 50 ML IV ONE (05:35)
[2016-09-03] MEDS ORDERED: PIPERACILLIN /TAZOBACTAM 3.375 G VIAL IV ONE (05:35)
[2016-09-03] MEDS ORDERED: IV SET PRIMARY PUMP SET 1 EA INFUS.SET MC ONE ×2 (05:35→17:34)
[2016-09-03 05:36] LABS: INR 1.03 (0.87-1.13); PROTHROMBIN TIME 11.1 SECS (9.5-12.7)
[2016-09-03 05:40] LABS: LACTIC ACID 0.9 mmol/L (0.4-2.0); TROPONIN I < 0.017 ng/mL (0.00-0.056)
[2016-09-03 05:44] LABS: ALANINE AMINOTRANSFERASE 8 U/L (12-78); ALBUMIN 2.3 g/dL (3.4-5.0); ASPARTATE AMINOTRANSFERASE 10 U/L (15-37); BILIRUBIN,DIRECT 0.1 mg/dL (0.0-0.2); BILIRUBIN,TOTAL 0.3 mg/dL (0.2-1.0); INDIRECT BILIRUBIN 0.2 mg/dL (0.0-1.1); TOTAL PROTEIN, SERUM 6.6 g/dL (6.4-8.2)
[2016-09-03] MEDS ORDERED: IV D5W 250 ML IV ONE (06:17)
[2016-09-03] MEDS ORDERED: VANCOMYCIN 1 GM VIAL ONE (06:17)
[2016-09-03] MEDS ORDERED: ALBUTEROL FS 2.5 MG/0.5 ML VIAL.NEB NEB PRN (12:00)
[2016-09-03] MEDS ORDERED: IPRATROPIUM NEB FS 0.5 MG/2.5 ML AMPUL.NEB NEB PRN (12:00)
[2016-09-03] MEDS ORDERED: FEE PK DOSING 1 MIN EA MC ONE (12:32)
[2016-09-03 13:13] LABS: ABG BASE EXCESS 4.2 mmol/L; ABG HCO3 28.7 mmol/L; ABG PCO2 42.6 mmHg (35.0-45.0); ABG PH 7.447 (7.350-7.450); ABG TOTAL HEMOGLOBIN 14.6 G/dL (12.0-16.0); ALLEN TEST Pass; AaDO2 576.4 mmHg; O2Hb 95.5 % (94.0-97.0)
[2016-09-03] MEDS ORDERED: BISACODYL SUPP (10 MG) 10 MG/SUPP.RECT SUPP.RECT RC PRN (13:30)
[2016-09-03] MEDS ORDERED: NA PHOS,M-B/NA PHOS,DI-BA 1 EA ENEMA RC PRN (13:30)
[2016-09-03] MEDS ORDERED: IV NS 0.9% 250 ML IV ONE (17:34)
[2016-09-03] MEDS: Z GUARD REMEDY 2 OZ OINT TP SCH (17:42)
[2016-09-03] MEDS: buPROPion 75 MG TABLET PO SCH (17:42)
[2016-09-03] MEDS: GALANTAMINE HYDROBROMIDE 4 MG TABLET PO SCH (17:42)
[2016-09-03] MEDS: CARBIDOPA/LEVODOPA 25/250 MG 1 UDTAB PO SCH (17:42)
[2016-09-03] MEDS: PIPERACILLIN /TAZOBACTAM 4.5 G in IV D5W 50 ML IV SCH ×2 (17:43→23:35)
[2016-09-03] MEDS: IPRATROPIUM NEB FS 0.5 MG/2.5 ML AMPUL.NEB NEB SCH (17:56)
[2016-09-03] MEDS: ALBUTEROL FS 2.5 MG/0.5 ML VIAL.NEB NEB SCH (17:56)
[2016-09-03] MEDS: VANCOMYCIN 0.75 GM in IV D5W 250 ML IV SCH (18:44)
[2016-09-03 20:57] LABS: KETONES,URINE NEGATIVE (NEGATIVE); LEUKOCYTE ESTERASE ,URINE TRACE (NEGATIVE); PH,URINE 6.5 (5.0-8.0)
[2016-09-03] MEDS: MAGNESIUM HYDROXIDE 30 ML UDC PO SCH (21:16)
[2016-09-03] MEDS: CARBIDOPA/LEV CR 50/200 MG 1 UDTAB.SA PO SCH (21:16)
[2016-09-03] MEDS: QUETIAPINE FUMARATE 25 MG TABLET PO SCH (21:16)
[2016-09-03] MEDS: ATORVASTATIN 10 MG TABLET PO SCH (21:16)
[2016-09-03 21:18] LABS: ADD UA MICROSCOPIC YES; ADD URINE CULTURE NO
[2016-09-03] MEDS ORDERED: SECONDARY IV SET 1 EA INFUS.SET MC ONE (23:36)
[2016-09-04] VITALS (26 sets, daily range): BP systolic 87–144; BP diastolic 60–81
[2016-09-04] MEDS: ALBUTEROL FS 2.5 MG/0.5 ML VIAL.NEB NEB SCH ×4 (02:00→19:48)
[2016-09-04] MEDS: IPRATROPIUM NEB FS 0.5 MG/2.5 ML AMPUL.NEB NEB SCH ×4 (02:01→19:48)
[2016-09-04] MEDS: PIPERACILLIN /TAZOBACTAM 4.5 G in IV D5W 50 ML IV SCH ×3 (05:02→17:06)
[2016-09-04] MEDS: VANCOMYCIN 0.75 GM in IV D5W 250 ML IV SCH ×2 (05:04→18:04)
[2016-09-04 05:22] LABS: CREATININE 0.8 mg/dL (0.6-1.3)
[2016-09-04] MEDS ORDERED: SECONDARY IV SET 1 EA INFUS.SET MC ONE (05:39)
[2016-09-04] MEDS: ZINC SULFATE 220 MG CAPSULE PO SCH (08:58)
[2016-09-04] MEDS: ASCORBIC ACID 500 MG TABLET PO SCH (08:58)
[2016-09-04] MEDS: MULTIVITAMINS,THERAPEUTIC 1 UDTAB TABLET PO SCH (08:58)
[2016-09-04] MEDS: GALANTAMINE HYDROBROMIDE 4 MG TABLET PO SCH ×2 (08:58→16:09)
[2016-09-04] MEDS: IRBESARTAN (150MG) 150 MG TABLET PO SCH (08:58)
[2016-09-04] MEDS: CARBIDOPA/LEVODOPA 25/250 MG 1 UDTAB PO SCH ×3 (08:59→16:08)
[2016-09-04] MEDS: buPROPion 75 MG TABLET PO SCH ×2 (08:59→16:08)
[2016-09-04] MEDS: PANTOPRAZOLE 40 MG TABLET.DR PO SCH (08:59)
[2016-09-04] MEDS ORDERED: HYDROGEL DRESSING 90 GM TUBE TP PRN (09:00)
[2016-09-04] MEDS: Z GUARD REMEDY 2 OZ OINT TP SCH (09:00)
[2016-09-04] MEDS ORDERED: DOCUSATE SODIUM 100 MG CAPSULE PO PRN (09:00)
[2016-09-04] MEDS: HYDROGEL DRESSING 90 GM TUBE TP SCH (09:06)
[2016-09-04] MEDS ORDERED: IV NS 0.9% 250 ML IV ONE (11:31)
[2016-09-04] MEDS ORDERED: NUTREN PULMONARY 1,000 ML BAG GT PRN (12:30)
[2016-09-04] MEDS ORDERED: FUROSEMIDE 40 MG/4 ML VIAL IV ONE (13:00)
[2016-09-04] MEDS ORDERED: FIBERSOURCE HN 1,000 ML BOTTLE GT PRN (13:00)
[2016-09-04] MEDS: ENOXAPARIN SODIUM 40 MG/0.4 ML DISP.SYRIN SQ SCH (13:16)
[2016-09-04] MEDS: NUTREN PULMONARY 1,000 ML BAG GT PRN (14:28)
[2016-09-04] MEDS: CARBIDOPA/LEV CR 50/200 MG 1 UDTAB.SA PO SCH (21:33)
[2016-09-04] MEDS: MAGNESIUM HYDROXIDE 30 ML UDC PO SCH (21:33)
[2016-09-04] MEDS: ATORVASTATIN 10 MG TABLET PO SCH (21:33)
[2016-09-04] MEDS: QUETIAPINE FUMARATE 25 MG TABLET PO SCH (21:33)
[2016-09-05] VITALS (20 sets, daily range): BP systolic 86–129; BP diastolic 33–84
[2016-09-05] MEDS: ALBUTEROL FS 2.5 MG/0.5 ML VIAL.NEB NEB SCH ×4 (01:01→19:20)
[2016-09-05] MEDS: IPRATROPIUM NEB FS 0.5 MG/2.5 ML AMPUL.NEB NEB SCH ×4 (01:01→19:20)
[2016-09-05 05:13] LABS: BASOPHILS % (AUTO) 0.3 % (0.0-2.0); DIFF TOTAL % 100 %; EOSINOPHILS # (AUTO) 0.1 /CMM (0.0-0.7); EOSINOPHILS % (AUTO) 1.2 % (0.0-6.0); HEMATOCRIT 37 % (33-45); HEMOGLOBIN 12.2 g/dL (11.5-14.8); LYMPHOCYTES % (AUTO) 8.9 % (20.0-44.0); MEAN CORPUSCULAR HEMOGLOBIN 31 PG (26.0-33.0); MEAN CORPUSCULAR HGB CONC 34 g/dl (31.0-36.0); MEAN CORPUSCULAR VOLUME 93 fL (82-100); MONOCYTES # (AUTO) 0.4 /CMM (0.1-1.30); MONOCYTES % (AUTO) 3.6 % (2.0-12.0); NEUTROPHILS # (AUTO) 10.1 /CMM (1.8-8.9); PLATELET COUNT (AUTO) 265 /CMM (150-450); RED BLOOD CELL COUNT(AUTO) 3.91 MIL/uL (4.0-5.2); WHITE BLOOD COUNT (AUTO) 11.7 K/uL (4.3-11.0)
[2016-09-05 05:31] LABS: CALCIUM, SERUM 8.5 mg/dL (8.5-10.1); CREATININE 0.7 mg/dL (0.6-1.3); PHOSPHORUS 2.9 mg/dL (2.5-4.9); POTASSIUM 3.9 mmol/L (3.5-5.1)
[2016-09-05] MEDS: PIPERACILLIN /TAZOBACTAM 4.5 G in IV D5W 50 ML IV SCH ×6 (06:10→23:46)
[2016-09-05] MEDS: VANCOMYCIN 0.75 GM in IV D5W 250 ML IV SCH ×2 (06:10→18:17)
[2016-09-05] MEDS: ASCORBIC ACID 500 MG TABLET PO SCH (08:30)
[2016-09-05] MEDS: CARBIDOPA/LEVODOPA 25/250 MG 1 UDTAB PO SCH ×3 (08:30→17:24)
[2016-09-05] MEDS ORDERED: FUROSEMIDE 20 MG/2 ML VIAL IV ONE (08:30)
[2016-09-05] MEDS: PANTOPRAZOLE 40 MG TABLET.DR PO SCH (08:30)
[2016-09-05] MEDS: ZINC SULFATE 220 MG CAPSULE PO SCH (08:30)
[2016-09-05] MEDS: MULTIVITAMINS,THERAPEUTIC 1 UDTAB TABLET PO SCH (08:30)
[2016-09-05] MEDS: GALANTAMINE HYDROBROMIDE 4 MG TABLET PO SCH ×2 (08:30→17:23)
[2016-09-05] MEDS: buPROPion 75 MG TABLET PO SCH ×2 (08:31→17:24)
[2016-09-05] MEDS: ENOXAPARIN SODIUM 40 MG/0.4 ML DISP.SYRIN SQ SCH (08:36)
[2016-09-05] MEDS: HYDROGEL DRESSING 90 GM TUBE TP SCH (08:37)
[2016-09-05] MEDS: IRBESARTAN (150MG) 150 MG TABLET PO SCH (08:37)
[2016-09-05] MEDS: Z GUARD REMEDY 2 OZ OINT TP SCH (08:38)
[2016-09-05 09:18] LABS: ABG BASE EXCESS 8.7 mmol/L; ABG HCO3 34.8 mmol/L; ABG PCO2 53.2 mmHg (35.0-45.0); ABG PH 7.433 (7.350-7.450); ABG PO2 63.6 mmHg (75.0-100.0); ALLEN TEST Pass; AaDO2 160.4 mmHg; O2Hb 90.4 % (94.0-97.0)
[2016-09-05] MEDS: ACETYLCYSTEINE 10% SOLN 400 MG/4 ML VIAL NEB SCH ×2 (11:16→14:30)
[2016-09-05] MEDS ORDERED: IV NS 0.9% 250 ML IV ONE ×2 (13:22→17:59)
[2016-09-05] MEDS: NUTREN PULMONARY 1,000 ML BAG GT PRN (13:36)
[2016-09-05] MEDS ORDERED: IV SET PRIMARY PUMP SET 1 EA INFUS.SET MC ONE (17:59)
[2016-09-05] MEDS ORDERED: SECONDARY IV SET 1 EA INFUS.SET MC ONE (17:59)
[2016-09-05] MEDS: ATORVASTATIN 10 MG TABLET PO SCH (22:28)
[2016-09-05] MEDS: CARBIDOPA/LEV CR 50/200 MG 1 UDTAB.SA PO SCH (22:28)
[2016-09-05] MEDS: QUETIAPINE FUMARATE 25 MG TABLET PO SCH (22:28)
[2016-09-05] MEDS: MAGNESIUM HYDROXIDE 30 ML UDC PO SCH (22:28)
[2016-09-06 00:09] VITALS: BP 99/63
[2016-09-06] MEDS: ACETYLCYSTEINE 10% SOLN 400 MG/4 ML VIAL NEB SCH ×3 (00:48→14:31)
[2016-09-06] MEDS: IPRATROPIUM NEB FS 0.5 MG/2.5 ML AMPUL.NEB NEB SCH ×4 (00:48→20:43)
[2016-09-06] MEDS: ALBUTEROL FS 2.5 MG/0.5 ML VIAL.NEB NEB SCH ×4 (00:48→20:43)
[2016-09-06] MEDS: PIPERACILLIN /TAZOBACTAM 4.5 G in IV D5W 50 ML IV SCH ×4 (05:39→23:59)
[2016-09-06] MEDS: VANCOMYCIN 0.75 GM in IV D5W 250 ML IV SCH (06:33)
[2016-09-06 06:38] LABS: BASOPHILS % (AUTO) 0.5 % (0.0-2.0); DIFF TOTAL % 100 %; EOSINOPHILS # (AUTO) 0.1 /CMM (0.0-0.7); EOSINOPHILS % (AUTO) 0.9 % (0.0-6.0); HEMATOCRIT 36 % (33-45); LYMPHOCYTES # (AUTO) 1.5 /CMM (0.8-4.8); LYMPHOCYTES % (AUTO) 15.1 % (20.0-44.0); MEAN CORPUSCULAR HEMOGLOBIN 31 PG (26.0-33.0); MEAN CORPUSCULAR HGB CONC 33 g/dl (31.0-36.0); MEAN CORPUSCULAR VOLUME 94 fL (82-100); MONOCYTES # (AUTO) 0.5 /CMM (0.1-1.30); MONOCYTES % (AUTO) 4.7 % (2.0-12.0); NEUTROPHILS # (AUTO) 7.7 /CMM (1.8-8.9); NEUTROPHILS % (AUTO) 78.8 % (43.0-81.0); PLATELET COUNT (AUTO) 234 /CMM (150-450); RED BLOOD CELL COUNT(AUTO) 3.84 MIL/uL (4.0-5.2); WHITE BLOOD COUNT (AUTO) 9.7 K/uL (4.3-11.0)
[2016-09-06 07:07] LABS: CALCIUM, SERUM 8.7 mg/dL (8.5-10.1); CREATININE 0.7 mg/dL (0.6-1.3); PHOSPHORUS 2.8 mg/dL (2.5-4.9); POTASSIUM 3.6 mmol/L (3.5-5.1)
[2016-09-06] MEDS: CARBIDOPA/LEVODOPA 25/250 MG 1 UDTAB PO SCH ×2 (08:06→12:08)
[2016-09-06] MEDS: buPROPion 75 MG TABLET PO SCH (08:07)
[2016-09-06] MEDS: ZINC SULFATE 220 MG CAPSULE PO SCH (08:07)
[2016-09-06] MEDS: GALANTAMINE HYDROBROMIDE 4 MG TABLET PO SCH (08:07)
[2016-09-06] MEDS: ASCORBIC ACID 500 MG TABLET PO SCH (08:07)
[2016-09-06] MEDS: PANTOPRAZOLE 40 MG TABLET.DR PO SCH (08:07)
[2016-09-06] MEDS: MULTIVITAMINS,THERAPEUTIC 1 UDTAB TABLET PO SCH (08:07)
[2016-09-06 08:08] VITALS: BP 101/62
[2016-09-06] MEDS: ENOXAPARIN SODIUM 40 MG/0.4 ML DISP.SYRIN SQ SCH (08:08)
[2016-09-06] MEDS: Z GUARD REMEDY 2 OZ OINT TP SCH (08:21)
[2016-09-06] MEDS: HYDROGEL DRESSING 90 GM TUBE TP SCH (08:22)
[2016-09-06] MEDS: IRBESARTAN (150MG) 150 MG TABLET PO SCH (10:00)
[2016-09-06 16:00] VITALS: BP 109/58
[2016-09-06] MEDS: buPROPion 75 MG TABLET GT SCH (16:52)
[2016-09-06] MEDS: CARBIDOPA/LEVODOPA 25/250 MG 1 UDTAB GT SCH (16:52)
[2016-09-06] MEDS: GALANTAMINE HYDROBROMIDE 4 MG TABLET GT SCH (16:53)
[2016-09-06 20:00] VITALS: BP 100/60
[2016-09-06] MEDS: ATORVASTATIN 10 MG TABLET GT SCH (23:11)
[2016-09-06] MEDS: MAGNESIUM HYDROXIDE 30 ML UDC PO SCH (23:11)
[2016-09-06] MEDS: CARBIDOPA/LEV CR 50/200 MG 1 UDTAB.SA GT SCH (23:11)
[2016-09-06] MEDS: QUETIAPINE FUMARATE 25 MG TABLET GT SCH (23:11)
[2016-09-07] MEDS: ACETYLCYSTEINE 10% SOLN 400 MG/4 ML VIAL NEB SCH ×3 (00:02→23:30)
[2016-09-07] MEDS: ALBUTEROL FS 2.5 MG/0.5 ML VIAL.NEB NEB SCH ×2 (01:53→08:58)
[2016-09-07] MEDS: IPRATROPIUM NEB FS 0.5 MG/2.5 ML AMPUL.NEB NEB SCH ×4 (01:53→19:37)
[2016-09-07] MEDS: VANCOMYCIN 500 MG in IV D5W 100 ML IV SCH ×2 (05:10→17:07)
[2016-09-07] MEDS: PIPERACILLIN /TAZOBACTAM 4.5 G in IV D5W 50 ML IV SCH ×4 (06:24→23:13)
[2016-09-07] MEDS: NUTREN PULMONARY 1,000 ML BAG GT PRN (06:25)
[2016-09-07 06:35] LABS: CALCIUM, SERUM 8.6 mg/dL (8.5-10.1); CREATININE 0.6 mg/dL (0.6-1.3); POTASSIUM 3.6 mmol/L (3.5-5.1)
[2016-09-07] MEDS: PANTOPRAZOLE 40 MG TABLET.DR PO SCH (07:30)
[2016-09-07 08:00] VITALS: BP 98/60
[2016-09-07] MEDS: IRBESARTAN (150MG) 150 MG TABLET PO SCH (09:00)
[2016-09-07] MEDS: Z GUARD REMEDY 2 OZ OINT TP SCH (09:00)
[2016-09-07] MEDS: MULTIVITAMINS,THERAPEUTIC 1 UDTAB TABLET GT SCH (10:25)
[2016-09-07] MEDS: GALANTAMINE HYDROBROMIDE 4 MG TABLET GT SCH ×2 (10:26→17:06)
[2016-09-07] MEDS: ASCORBIC ACID 500 MG TABLET GT SCH (10:26)
[2016-09-07] MEDS: CARBIDOPA/LEVODOPA 25/250 MG 1 UDTAB GT SCH ×3 (10:26→17:06)
[2016-09-07] MEDS: ZINC SULFATE 220 MG CAPSULE GT SCH (10:26)
[2016-09-07] MEDS: buPROPion 75 MG TABLET GT SCH ×2 (10:27→17:06)
[2016-09-07] MEDS: ENOXAPARIN SODIUM 40 MG/0.4 ML DISP.SYRIN SQ SCH (10:43)
[2016-09-07] MEDS: ALBUTEROL FS 2.5 MG/3 ML VIAL.NEB NEB SCH ×2 (14:21→19:37)
[2016-09-07 16:00] VITALS: BP 101/58
[2016-09-07] MEDS: HYDROGEL DRESSING 90 GM TUBE TP SCH (17:08)
[2016-09-07 20:00] VITALS: BP 100/60
[2016-09-07] MEDS: ATORVASTATIN 10 MG TABLET GT SCH (21:01)
[2016-09-07] MEDS: QUETIAPINE FUMARATE 25 MG TABLET GT SCH (21:01)
[2016-09-07] MEDS: CARBIDOPA/LEV CR 50/200 MG 1 UDTAB.SA GT SCH (21:01)
[2016-09-07] MEDS: MAGNESIUM HYDROXIDE 30 ML UDC PO SCH (21:01)
[2016-09-07 21:10] VITALS: BP 100/60
[2016-09-08] MEDS: IPRATROPIUM NEB FS 0.5 MG/2.5 ML AMPUL.NEB NEB SCH ×4 (01:23→19:02)
[2016-09-08] MEDS: ACETYLCYSTEINE 10% SOLN 400 MG/4 ML VIAL NEB SCH ×3 (01:23→13:30)
[2016-09-08] MEDS: ALBUTEROL FS 2.5 MG/3 ML VIAL.NEB NEB SCH ×4 (01:23→19:03)
[2016-09-08] MEDS: VANCOMYCIN 500 MG in IV D5W 100 ML IV SCH ×2 (04:09→18:56)
[2016-09-08] MEDS: PIPERACILLIN /TAZOBACTAM 4.5 G in IV D5W 50 ML IV SCH ×3 (05:04→17:20)
[2016-09-08 06:46] LABS: CALCIUM, SERUM 8.6 mg/dL (8.5-10.1); CREATININE 0.6 mg/dL (0.6-1.3); POTASSIUM 3.5 mmol/L (3.5-5.1)
[2016-09-08 08:00] VITALS: BP 120/71
[2016-09-08] MEDS: MULTIVITAMINS,THERAPEUTIC 1 UDTAB TABLET GT SCH (08:43)
[2016-09-08] MEDS: buPROPion 75 MG TABLET GT SCH ×2 (08:43→16:53)
[2016-09-08] MEDS: GALANTAMINE HYDROBROMIDE 4 MG TABLET GT SCH ×2 (08:43→16:53)
[2016-09-08] MEDS: ZINC SULFATE 220 MG CAPSULE GT SCH (08:43)
[2016-09-08] MEDS: PANTOPRAZOLE 40 MG TABLET.DR PO SCH (08:43)
[2016-09-08] MEDS: ASCORBIC ACID 500 MG TABLET GT SCH (08:44)
[2016-09-08] MEDS: CARBIDOPA/LEVODOPA 25/250 MG 1 UDTAB GT SCH ×3 (08:44→16:53)
[2016-09-08] MEDS: ENOXAPARIN SODIUM 40 MG/0.4 ML DISP.SYRIN SQ SCH (08:45)
[2016-09-08] MEDS: IRBESARTAN (150MG) 150 MG TABLET PO SCH (08:48)
[2016-09-08] MEDS: HYDROGEL DRESSING 90 GM TUBE TP SCH (08:51)
[2016-09-08] MEDS: Z GUARD REMEDY 2 OZ OINT TP SCH (08:52)
[2016-09-08 16:00] VITALS: BP 110/60
[2016-09-08] MEDS ORDERED: IV NS 0.9% 250 ML IV ONE (16:48)
[2016-09-08] MEDS: NUTREN PULMONARY 1,000 ML BAG GT PRN (16:53)
[2016-09-08] MEDS: LACTOBACILLUS RHAMNOSUS GG 1 EACH CAP.SPRINK GT SCH (16:53)
[2016-09-08 20:00] VITALS: BP 85/49
[2016-09-08] MEDS: QUETIAPINE FUMARATE 25 MG TABLET GT SCH (21:31)
[2016-09-08] MEDS: MAGNESIUM HYDROXIDE 30 ML UDC PO SCH (21:31)
[2016-09-08] MEDS: ATORVASTATIN 10 MG TABLET GT SCH (21:31)
[2016-09-08] MEDS: CARBIDOPA/LEV CR 50/200 MG 1 UDTAB.SA GT SCH (21:31)
[2016-09-09] MEDS: PIPERACILLIN /TAZOBACTAM 4.5 G in IV D5W 50 ML IV SCH ×4 (00:11→18:07)
[2016-09-09] MEDS: ALBUTEROL FS 2.5 MG/3 ML VIAL.NEB NEB SCH ×4 (00:33→19:33)
[2016-09-09] MEDS: ACETYLCYSTEINE 10% SOLN 400 MG/4 ML VIAL NEB SCH ×3 (00:33→14:47)
[2016-09-09] MEDS: IPRATROPIUM NEB FS 0.5 MG/2.5 ML AMPUL.NEB NEB SCH ×4 (00:33→19:33)
[2016-09-09] MEDS: VANCOMYCIN 500 MG in IV D5W 100 ML IV SCH ×2 (04:22→16:40)
[2016-09-09 06:58] LABS: CALCIUM, SERUM 8.7 mg/dL (8.5-10.1); CREATININE 0.6 mg/dL (0.6-1.3); POTASSIUM 3.4 mmol/L (3.5-5.1)
[2016-09-09 08:00] VITALS: BP 104/57
[2016-09-09] MEDS: MULTIVITAMINS,THERAPEUTIC 1 UDTAB TABLET GT SCH (08:09)
[2016-09-09] MEDS: PANTOPRAZOLE 40 MG TABLET.DR PO SCH (08:09)
[2016-09-09] MEDS: ASCORBIC ACID 500 MG TABLET GT SCH (08:09)
[2016-09-09] MEDS: buPROPion 75 MG TABLET GT SCH ×2 (08:09→16:47)
[2016-09-09] MEDS: GALANTAMINE HYDROBROMIDE 4 MG TABLET GT SCH ×2 (08:09→16:47)
[2016-09-09] MEDS: LACTOBACILLUS RHAMNOSUS GG 1 EACH CAP.SPRINK GT SCH ×2 (08:10→16:47)
[2016-09-09] MEDS: ZINC SULFATE 220 MG CAPSULE GT SCH (08:10)
[2016-09-09] MEDS: CARBIDOPA/LEVODOPA 25/250 MG 1 UDTAB GT SCH ×3 (08:10→16:47)
[2016-09-09] MEDS: IRBESARTAN (150MG) 150 MG TABLET PO SCH (08:12)
[2016-09-09] MEDS: ENOXAPARIN SODIUM 40 MG/0.4 ML DISP.SYRIN SQ SCH (08:13)
[2016-09-09] MEDS: Z GUARD REMEDY 2 OZ OINT TP SCH (08:16)
[2016-09-09] MEDS: HYDROGEL DRESSING 90 GM TUBE TP SCH (08:16)
[2016-09-09] MEDS ORDERED: POTASSIUM CHLORIDE 20 MEQ POWDER PACKET GT SCH (10:00)
[2016-09-09 16:05] VITALS: BP 114/67
[2016-09-09] MEDS ORDERED: IV NS 0.9% 250 ML IV ONE (16:39)
[2016-09-09] MEDS: NUTREN PULMONARY 1,000 ML BAG GT PRN (16:47)
[2016-09-09 20:14] VITALS: BP 109/57
[2016-09-09] MEDS: ATORVASTATIN 10 MG TABLET GT SCH (21:16)
[2016-09-09] MEDS: MAGNESIUM HYDROXIDE 30 ML UDC PO SCH (21:16)
[2016-09-09] MEDS: QUETIAPINE FUMARATE 25 MG TABLET GT SCH (21:16)
[2016-09-09] MEDS: CARBIDOPA/LEV CR 50/200 MG 1 UDTAB.SA GT SCH (21:16)
[2016-09-10] MEDS: PIPERACILLIN /TAZOBACTAM 4.5 G in IV D5W 50 ML IV SCH ×2 (00:11→06:21)
[2016-09-10] MEDS: IPRATROPIUM NEB FS 0.5 MG/2.5 ML AMPUL.NEB NEB SCH ×3 (01:33→13:45)
[2016-09-10] MEDS: ALBUTEROL FS 2.5 MG/3 ML VIAL.NEB NEB SCH ×3 (01:33→13:45)
[2016-09-10] MEDS: ACETYLCYSTEINE 10% SOLN 400 MG/4 ML VIAL NEB SCH ×3 (01:33→13:45)
[2016-09-10] MEDS: VANCOMYCIN 500 MG in IV D5W 100 ML IV SCH ×2 (04:55→16:46)
[2016-09-10 07:49] LABS: CALCIUM, SERUM 8.5 mg/dL (8.5-10.1); CREATININE 0.5 mg/dL (0.6-1.3); POTASSIUM 3.9 mmol/L (3.5-5.1)
[2016-09-10 08:00] VITALS: BP 114/67
[2016-09-10] MEDS: CARBIDOPA/LEVODOPA 25/250 MG 1 UDTAB GT SCH ×3 (09:01→16:44)
[2016-09-10] MEDS: ZINC SULFATE 220 MG CAPSULE GT SCH (09:01)
[2016-09-10] MEDS: LACTOBACILLUS RHAMNOSUS GG 1 EACH CAP.SPRINK GT SCH ×2 (09:01→16:44)
[2016-09-10] MEDS: PANTOPRAZOLE 40 MG TABLET.DR PO SCH (09:02)
[2016-09-10] MEDS: MULTIVITAMINS,THERAPEUTIC 1 UDTAB TABLET GT SCH (09:02)
[2016-09-10] MEDS: GALANTAMINE HYDROBROMIDE 4 MG TABLET GT SCH ×2 (09:02→16:45)
[2016-09-10] MEDS: buPROPion 75 MG TABLET GT SCH ×2 (09:02→16:45)
[2016-09-10] MEDS: ASCORBIC ACID 500 MG TABLET GT SCH (09:02)
[2016-09-10] MEDS: ENOXAPARIN SODIUM 40 MG/0.4 ML DISP.SYRIN SQ SCH (09:03)
[2016-09-10] MEDS: IRBESARTAN (150MG) 150 MG TABLET PO SCH (09:11)
[2016-09-10] MEDS: HYDROGEL DRESSING 90 GM TUBE TP SCH (09:20)
[2016-09-10] MEDS: Z GUARD REMEDY 2 OZ OINT TP SCH (09:20)
[2016-09-10] MEDS ORDERED: PIPERACILLIN /TAZOBACTAM 3.375 G in IV D5W 50 ML IV SCH (12:00)
[2016-09-10 15:50] VITALS: BP 124/74
[2016-09-10] MEDS: NUTREN PULMONARY 1,000 ML BAG GT PRN (16:46)
[2016-09-11] MEDS ORDERED: ENOXAPARIN SODIUM 30 MG/0.3 ML DISP.SYRIN SQ SCH (09:00)
== END 2016-09-10 19:05 | disposition short-term general hospital (02) | DRG 177 ==
LOC: ER 04:44 → MED 07:24 → ICU 16:21 → MED 09-05 15:35 → TELE 09-06 00:02 → MED 09-06 10:30
PROVIDERS: ADMIT Internal Medicine Nephrology; ATTEND Internal Medicine Nephrology
DX: J69.0 Pneumonitis due to inhalation of food and vomit (principal); J96.01 Acute respiratory failure with hypoxia; G93.40 Encephalopathy, unspecified; E43 Unspecified severe protein-calorie malnutrition; E87.0 Hyperosmolality and hypernatremia; Z68.1 Body mass index [BMI] 19.9 or less, adult; J15.6 Pneumonia due to other Gram-negative bacteria; J15.9 Unspecified bacterial pneumonia; F03.90 Unspecified dementia, unspecified severity, without behavioral disturbance, psychotic disturbance, mood disturbance, and anxiety; G20 Parkinson's disease; Z66 Do not resuscitate; I50.9 Heart failure, unspecified; I11.0 Hypertensive heart disease with heart failure; K21.9 Gastro-esophageal reflux disease without esophagitis; E78.5 Hyperlipidemia, unspecified; I25.10 Atherosclerotic heart disease of native coronary artery without angina pectoris; L89.159 Pressure ulcer of sacral region, unspecified stage
CPT/HCPCS: 31720; 36415; 36600; 71010-TC; 80048-TC; 80076-TC; 80202-TC; 81000-TC; 83605-TC; 83735-TC; 83880; 84100-TC; 84484-TC; 85025-TC; 85730-TC; 87040-TC; 87081-TC; 93307-TC; 93970-TC; 94668-TC; 94760-TC; 94799-TC; A4606; A6248; A6402; C1751; J1650; J1940; J2543; J3370; J7050; J7060; Z7610

== ENCOUNTER 2017-01-12 20:47 | Inpatient (IN) | payer MEDICARE ==
[~2017-01-12] VITALS: Ht 167.6 cm; Wt 48.5 kg
[~2017-01-12 20:47] MED LIST changes: +ASCO500T9 GT; -ASCO500T9 PO; +ATOR10TA GT; -ATOR10TA PO; +BISA10SU61 RC; +BUPR75TA8 GT; -BUPR75TA8 PO; +CARB-94 GT; -CARB-94 PO; +CARB1TAB60 GT; -CARB1TAB60 PO; +DOCU-25 GT; +MAGN400O6 GT; +NA P133E RC; +QUET25TA GT; -QUET25TA PO
[2017-01-12 21:00] VITALS: BP 106/59
[2017-01-12 21:21] LABS: BASOPHILS # (AUTO) 0.3 /CMM (0.0-0.2); EOSINOPHILS # (AUTO) 0.1 /CMM (0.0-0.7); EOSINOPHILS % (AUTO) 0.6 % (0.0-6.0); HEMATOCRIT 39 % (33-45); HEMOGLOBIN 12.3 g/dL (11.5-14.8); LYMPHOCYTES # (AUTO) 0.8 /CMM (0.8-4.8); LYMPHOCYTES % (AUTO) 5.3 % (20.0-44.0); MEAN CORPUSCULAR HEMOGLOBIN 29 PG (26.0-33.0); MEAN CORPUSCULAR HGB CONC 32 g/dl (31.0-36.0); MEAN CORPUSCULAR VOLUME 90 fL (82-100); MONOCYTES # (AUTO) 0.8 /CMM (0.1-1.30); NEUTROPHILS # (AUTO) 13.3 /CMM (1.8-8.9); NEUTROPHILS % (AUTO) 87.1 % (43.0-81.0); PLATELET COUNT (AUTO) 271 /CMM (150-450); RDW COEFFICIENT OF VARIATION 13.9 (11.5-15.0); RED BLOOD CELL COUNT(AUTO) 4.33 MIL/uL (4.0-5.2); WHITE BLOOD COUNT (AUTO) 15.3 K/uL (4.3-11.0)
[2017-01-12 21:32] LABS: CALCIUM, SERUM 8.6 mg/dL (8.5-10.1); CARBON DIOXIDE 35 mmol/L (21-32); CHLORIDE 99 mmol/L (98-107); CREATININE 0.7 mg/dL (0.6-1.3); GLUCOSE 139 mg/dL (74-106); POTASSIUM 3.7 mmol/L (3.5-5.1); SODIUM SERUM 138 mmol/L (136-145); UREA NITROGEN, BLOOD 24 mg/dL (7-18)
[2017-01-12 21:35] LABS: INR 1.04 (0.87-1.13); PROTHROMBIN TIME 10.8 SECS (9.5-12.7)
[2017-01-12 21:40] LABS: TROPONIN I < 0.017 ng/mL (0.00-0.056)
[2017-01-12 21:45] LABS: ALANINE AMINOTRANSFERASE 10 U/L (12-78); ALBUMIN 2.2 g/dL (3.4-5.0); ALKALINE PHOSPHATASE 123 U/L (46-116); ASPARTATE AMINOTRANSFERASE 16 U/L (15-37); B-TYPE NATRIURETIC PEPTIDE 1047 PG/ML (0-125); BILIRUBIN,DIRECT 0.1 mg/dL (0.0-0.2); BILIRUBIN,TOTAL 0.2 mg/dL (0.2-1.0); TOTAL PROTEIN, SERUM 7.3 g/dL (6.4-8.2)
[2017-01-12] MEDS ORDERED: FUROSEMIDE 40 MG/4 ML VIAL IV ONE ×2 (22:00→23:00)
[2017-01-12] MEDS ORDERED: PIPERACILLIN /TAZOBACTAM 3.375 G in IV D5W 50 ML IV ONE (22:00)
[2017-01-12] MEDS ORDERED: LANS30CA10 GT (22:13)
[2017-01-12] MEDS ORDERED: SACC250C6 GT (22:13)
[2017-01-12] MEDS ORDERED: LOSA100T3 GT (22:13)
[2017-01-12] MEDS ORDERED: ACET-868 GT (22:20)
[2017-01-12] MEDS ORDERED: GALA12TA4 GT (22:20)
[2017-01-12] MEDS ORDERED: PIPERACILLIN /TAZOBACTAM 3.375 G VIAL IV ONE (22:36)
[2017-01-12] MEDS ORDERED: FUROSEMIDE 40 MG/4 ML VIAL ONE (22:36)
[2017-01-12] MEDS ORDERED: IV SET PRIMARY 1 EA INFUS.SET MC ONE (22:36)
[2017-01-12 22:43] LABS: ABG BASE EXCESS 7.1 mmol/L; ABG OXYGEN SATURATION 98.1 % (92.0-98.5); ABG PCO2 61.5 mmHg (35.0-45.0); ABG PH 7.365 (7.350-7.450); ABG PO2 139.7 mmHg (75.0-100.0); AaDO2 366.1 mmHg; COHb 0.2 % (0.5-1.5); MetHb 0.4 % (0.0-1.5); O2Hb 97.5 % (94.0-97.0); PEEP,BG 5 cm H2O; SITE, ABG Right Brachial; VENT MODE, BG ST 18/5 R12 80%
[2017-01-13] VITALS (9 sets, daily range): BP systolic 76–100; BP diastolic 52–68
[2017-01-13] MEDS ORDERED: BUMETANIDE INJ 3 MG in IV NS 0.9% 48 ML IV ONE (00:30)
[2017-01-13] MEDS ORDERED: BUMETANIDE INJ 0.25 MG/ML VIAL ONE (00:33)
[2017-01-13] MEDS ORDERED: IV SET PRIMARY PUMP SET 1 EA INFUS.SET MC ONE ×2 (00:51→02:40)
[2017-01-13] MEDS ORDERED: IV D5W 250 ML IV ONE (02:38)
[2017-01-13] MEDS ORDERED: VANCOMYCIN 1 GM VIAL ONE (02:41)
[2017-01-13] MEDS ORDERED: PIPERACILLIN /TAZOBACTAM 3.375 G VIAL IV ONE (02:41)
[2017-01-13] MEDS ORDERED: SECONDARY IV SET 1 EA INFUS.SET MC ONE (02:42)
[2017-01-13] MEDS ORDERED: IV NS 0.9% 250 ML IV ONE (02:43)
[2017-01-13] MEDS ORDERED: IV D5W 50 ML IV ONE (02:53)
[2017-01-13] MEDS ORDERED: VANCOMYCIN 1 GM in IV D5W 250 ML IV SCH (03:00)
[2017-01-13] MEDS ORDERED: PIPERACILLIN /TAZOBACTAM 3.375 G in IV D5W 50 ML IV SCH (05:00)
[2017-01-13 07:02] LABS: TROPONIN I < 0.017 ng/mL (0.00-0.056)
[2017-01-13 07:08] LABS: ALANINE AMINOTRANSFERASE 19 U/L (12-78); ALBUMIN 2.1 g/dL (3.4-5.0); ALKALINE PHOSPHATASE 101 U/L (46-116); ASPARTATE AMINOTRANSFERASE 17 U/L (15-37); BILIRUBIN,TOTAL 0.4 mg/dL (0.2-1.0); CALCIUM, SERUM 8.4 mg/dL (8.5-10.1); CARBON DIOXIDE 35 mmol/L (21-32); CHLORIDE 100 mmol/L (98-107); CREATININE 0.7 mg/dL (0.6-1.3); GLUCOSE 135 mg/dL (74-106); POTASSIUM 3.1 mmol/L (3.5-5.1); SODIUM SERUM 138 mmol/L (136-145); UREA NITROGEN, BLOOD 22 mg/dL (7-18)
[2017-01-13 07:12] LABS: CHOLESTEROL 101 mg/dL (<200); HDL CHOLESTEROL 33 mg/dL (40-60); LDL 50 mg/dL (0-99); TRIGLYCERIDES 59 mg/dL (30-150)
[2017-01-13 07:44] LABS: BASOPHILS % (AUTO) 0.1 % (0.0-2.0); HEMATOCRIT 35 % (33-45); HEMOGLOBIN 11.4 g/dL (11.5-14.8); LYMPHOCYTES # (AUTO) 0.8 /CMM (0.8-4.8); LYMPHOCYTES % (AUTO) 4.8 % (20.0-44.0); MEAN CORPUSCULAR HEMOGLOBIN 29 PG (26.0-33.0); MEAN CORPUSCULAR HGB CONC 33 g/dl (31.0-36.0); MEAN CORPUSCULAR VOLUME 89 fL (82-100); MONOCYTES # (AUTO) 0.3 /CMM (0.1-1.30); MONOCYTES % (AUTO) 1.8 % (2.0-12.0); NEUTROPHILS # (AUTO) 15.4 /CMM (1.8-8.9); NEUTROPHILS % (AUTO) 93.3 % (43.0-81.0); PLATELET COUNT (AUTO) 241 /CMM (150-450); RED BLOOD CELL COUNT(AUTO) 3.94 MIL/uL (4.0-5.2); WHITE BLOOD COUNT (AUTO) 16.5 K/uL (4.3-11.0)
[2017-01-13] MEDS ORDERED: FEE PK DOSING 1 MIN EA MC ONE (08:27)
[2017-01-13] MEDS: LOSARTAN POTASSIUM 50 MG TABLET PO SCH (09:00)
[2017-01-13] MEDS ORDERED: NA PHOS,M-B/NA PHOS,DI-BA 1 EA ENEMA RC PRN (09:00)
[2017-01-13] MEDS: CARBIDOPA/LEVODOPA 25/250 MG 1 UDTAB GT SCH ×3 (09:24→17:04)
[2017-01-13] MEDS: FIBERSOURCE HN 1,000 ML BOTTLE GT PRN (09:24)
[2017-01-13] MEDS: ASCORBIC ACID 500 MG TABLET GT SCH (09:24)
[2017-01-13] MEDS: buPROPion 75 MG TABLET GT SCH ×2 (09:24→17:04)
[2017-01-13] MEDS: ACETAMINOPHEN 325 MG TABLET PO SCH ×4 (09:24→21:24)
[2017-01-13] MEDS: PANTOPRAZOLE 40 MG/PACK PACK GT SCH (09:25)
[2017-01-13] MEDS: GALANTAMINE HYDROBROMIDE 4 MG TABLET GT SCH ×2 (09:40→17:03)
[2017-01-13] MEDS: MULTIVITAMINS,THERAPEUTIC 1 UDTAB TABLET PO SCH (09:52)
[2017-01-13] MEDS: IRBESARTAN (150MG) 150 MG TABLET PO SCH (10:00)
[2017-01-13] MEDS ORDERED: BISACODYL SUPP (10 MG) 10 MG/SUPP.RECT SUPP.RECT RC PRN (10:00)
[2017-01-13] MEDS ORDERED: Medication Not On Formulary EA (Omeprazole 20 MG) PO SCH (10:00)
[2017-01-13] MEDS ORDERED: ZINC SULFATE 220 MG CAPSULE PO SCH (10:00)
[2017-01-13] MEDS ORDERED: DOCUSATE SODIUM LIQ 100 MG/10 ML UDC GT PRN (10:00)
[2017-01-13] MEDS: POTASSIUM CHLORIDE 20 MEQ POWDER PACKET GT SCH ×2 (12:09→12:30)
[2017-01-13] MEDS: methylPREDNISolone SOD SUCC 125 MG/2ML VIAL IV SCH ×2 (12:09→17:04)
[2017-01-13] MEDS: PIPERACILLIN /TAZOBACTAM 2.25 G in IV D5W 50 ML IV SCH ×2 (12:09→17:03)
[2017-01-13] MEDS ORDERED: Z GUARD REMEDY 4 OZ OINT TP PRN (12:30)
[2017-01-13] MEDS: ALBUTEROL HALF STRENGTH 1.25 MG/3 ML VIAL.NEB NEB SCH ×4 (14:00→23:36)
[2017-01-13] MEDS: IPRATROPIUM NEB FS 0.5 MG/2.5 ML AMPUL.NEB NEB SCH ×4 (14:00→23:36)
[2017-01-13 15:59] LABS: HEMATOCRIT 35 % (33-45); HEMOGLOBIN 11.2 g/dL (11.5-14.8); LYMPHOCYTES # (AUTO) 0.5 /CMM (0.8-4.8); LYMPHOCYTES % (AUTO) 2.6 % (20.0-44.0); MEAN CORPUSCULAR HEMOGLOBIN 29 PG (26.0-33.0); MEAN CORPUSCULAR HGB CONC 33 g/dl (31.0-36.0); MEAN CORPUSCULAR VOLUME 88 fL (82-100); MONOCYTES # (AUTO) 0.1 /CMM (0.1-1.30); MONOCYTES % (AUTO) 0.8 % (2.0-12.0); NEUTROPHILS # (AUTO) 17.1 /CMM (1.8-8.9); NEUTROPHILS % (AUTO) 96.6 % (43.0-81.0); PLATELET COUNT (AUTO) 250 /CMM (150-450); RDW COEFFICIENT OF VARIATION 15.1 (11.5-15.0); WHITE BLOOD COUNT (AUTO) 17.7 K/uL (4.3-11.0)
[2017-01-13] MEDS ORDERED: POTASSIUM CHLORIDE 20 MEQ POWDER PACKET GT SCH (16:30)
[2017-01-13] MEDS ORDERED: GALANTAMINE HYDROBROMIDE 12 MG PO SCH (17:00)
[2017-01-13] MEDS ORDERED: SACCHAROMYCES BOULARDII 250 MG CAPSULE GT SCH (17:00)
[2017-01-13] MEDS: LACTOBACILLUS RHAMNOSUS GG 1 EACH CAP.SPRINK GT SCH (17:20)
[2017-01-13] MEDS: ATORVASTATIN 10 MG TABLET GT SCH (21:24)
[2017-01-13] MEDS: CARBIDOPA/LEV CR 50/200 MG 1 UDTAB.SA GT SCH (21:24)
[2017-01-13] MEDS: MAGNESIUM HYDROXIDE 30 ML UDC GT SCH (21:24)
[2017-01-13] MEDS: QUETIAPINE FUMARATE 25 MG TABLET GT SCH (21:24)
[2017-01-13] MEDS: VANCOMYCIN 1 GM in IV D5W 250 ML IV SCH (21:25)
[2017-01-14] VITALS: BP 89/58
[2017-01-14] MEDS: ACETAMINOPHEN 325 MG TABLET PO SCH ×6 (00:23→21:20)
[2017-01-14] MEDS: PIPERACILLIN /TAZOBACTAM 2.25 G in IV D5W 50 ML IV SCH ×4 (00:24→18:08)
[2017-01-14] MEDS: IPRATROPIUM NEB FS 0.5 MG/2.5 ML AMPUL.NEB NEB SCH ×6 (03:17→22:53)
[2017-01-14] MEDS: ALBUTEROL HALF STRENGTH 1.25 MG/3 ML VIAL.NEB NEB SCH ×6 (03:17→22:53)
[2017-01-14 04:00] VITALS: BP 99/64
[2017-01-14 06:51] LABS: CALCIUM, SERUM 8.8 mg/dL (8.5-10.1); CARBON DIOXIDE 37 mmol/L (21-32); CHLORIDE 101 mmol/L (98-107); CREATININE 0.7 mg/dL (0.6-1.3); GLUCOSE 101 mg/dL (74-106); POTASSIUM 3.8 mmol/L (3.5-5.1); SODIUM SERUM 140 mmol/L (136-145); UREA NITROGEN, BLOOD 33 mg/dL (7-18)
[2017-01-14 08:00] VITALS: BP 124/75
[2017-01-14] MEDS: methylPREDNISolone SOD SUCC 125 MG/2ML VIAL IV SCH ×2 (09:18→16:34)
[2017-01-14] MEDS: CARBIDOPA/LEVODOPA 25/250 MG 1 UDTAB GT SCH ×3 (09:19→16:33)
[2017-01-14] MEDS: GALANTAMINE HYDROBROMIDE 4 MG TABLET GT SCH ×2 (09:19→16:33)
[2017-01-14] MEDS: PANTOPRAZOLE 40 MG/PACK PACK GT SCH (09:19)
[2017-01-14] MEDS: ZINC SULFATE 220 MG CAPSULE GT SCH (09:19)
[2017-01-14] MEDS: MULTIVITAMINS,THERAPEUTIC 1 UDTAB TABLET PO SCH (09:19)
[2017-01-14] MEDS: ASCORBIC ACID 500 MG TABLET GT SCH (09:19)
[2017-01-14] MEDS: IRBESARTAN (150MG) 150 MG TABLET PO SCH (09:19)
[2017-01-14] MEDS: buPROPion 75 MG TABLET GT SCH ×2 (09:19→16:34)
[2017-01-14] MEDS: LOSARTAN POTASSIUM 50 MG TABLET PO SCH (09:20)
[2017-01-14] MEDS: FIBERSOURCE HN 1,000 ML BOTTLE GT PRN (10:57)
[2017-01-14] MEDS ORDERED: IV NS 0.9% 500 ML IV ONE (11:47)
[2017-01-14 12:00] VITALS: BP 120/73
[2017-01-14] MEDS: VANCOMYCIN 1 GM in IV D5W 250 ML IV SCH (15:18)
[2017-01-14 16:00] VITALS: BP 102/63
[2017-01-14] MEDS ORDERED: SECONDARY IV SET 1 EA INFUS.SET MC ONE (16:20)
[2017-01-14] MEDS: AZITHROMYCIN 500 MG in IV D5W 250 ML IV SCH (16:33)
[2017-01-14] MEDS: LACTOBACILLUS RHAMNOSUS GG 1 EACH CAP.SPRINK GT SCH (16:33)
[2017-01-14 20:00] VITALS: BP 111/66
[2017-01-14] MEDS: MAGNESIUM HYDROXIDE 30 ML UDC GT SCH (21:21)
[2017-01-14] MEDS: ATORVASTATIN 10 MG TABLET GT SCH (21:21)
[2017-01-14] MEDS: QUETIAPINE FUMARATE 25 MG TABLET GT SCH (21:21)
[2017-01-14] MEDS: CARBIDOPA/LEV CR 50/200 MG 1 UDTAB.SA GT SCH (21:21)
[2017-01-15] VITALS (7 sets, daily range): BP systolic 94–142; BP diastolic 55–76
[2017-01-15] MEDS: ACETAMINOPHEN 325 MG TABLET PO SCH ×6 (01:11→21:08)
[2017-01-15] MEDS: PIPERACILLIN /TAZOBACTAM 2.25 G in IV D5W 50 ML IV SCH ×4 (01:11→18:17)
[2017-01-15] MEDS: IPRATROPIUM NEB FS 0.5 MG/2.5 ML AMPUL.NEB NEB SCH ×6 (03:08→23:21)
[2017-01-15] MEDS: ALBUTEROL HALF STRENGTH 1.25 MG/3 ML VIAL.NEB NEB SCH ×6 (03:08→23:21)
[2017-01-15] MEDS ORDERED: IV NS 0.9% 250 ML IV ONE (04:45)
[2017-01-15] MEDS: FIBERSOURCE HN 1,000 ML BOTTLE GT PRN (05:16)
[2017-01-15 06:56] LABS: CALCIUM, SERUM 8.4 mg/dL (8.5-10.1); CARBON DIOXIDE 35 mmol/L (21-32); CHLORIDE 102 mmol/L (98-107); CREATININE 0.7 mg/dL (0.6-1.3); GLUCOSE 230 mg/dL (74-106); SODIUM SERUM 141 mmol/L (136-145); UREA NITROGEN, BLOOD 31 mg/dL (7-18)
[2017-01-15] MEDS: methylPREDNISolone SOD SUCC 125 MG/2ML VIAL IV SCH ×2 (08:38→16:18)
[2017-01-15] MEDS: IRBESARTAN (150MG) 150 MG TABLET PO SCH (08:38)
[2017-01-15] MEDS: GALANTAMINE HYDROBROMIDE 4 MG TABLET GT SCH ×2 (08:38→16:18)
[2017-01-15] MEDS: ZINC SULFATE 220 MG CAPSULE GT SCH (08:39)
[2017-01-15] MEDS: LOSARTAN POTASSIUM 50 MG TABLET PO SCH (08:39)
[2017-01-15] MEDS: buPROPion 75 MG TABLET GT SCH ×2 (08:39→16:18)
[2017-01-15] MEDS: CARBIDOPA/LEVODOPA 25/250 MG 1 UDTAB GT SCH ×3 (08:39→16:18)
[2017-01-15] MEDS: PANTOPRAZOLE 40 MG/PACK PACK GT SCH (08:39)
[2017-01-15] MEDS: LACTOBACILLUS RHAMNOSUS GG 1 EACH CAP.SPRINK GT SCH ×2 (08:39→16:18)
[2017-01-15] MEDS: ASCORBIC ACID 500 MG TABLET GT SCH (08:39)
[2017-01-15] MEDS: MULTIVITAMINS,THERAPEUTIC 1 UDTAB TABLET PO SCH (08:39)
[2017-01-15] MEDS: AZITHROMYCIN 500 MG in IV D5W 250 ML IV SCH (16:16)
[2017-01-15] MEDS: QUETIAPINE FUMARATE 25 MG TABLET GT SCH (21:07)
[2017-01-15] MEDS: MAGNESIUM HYDROXIDE 30 ML UDC GT SCH (21:07)
[2017-01-15] MEDS: ATORVASTATIN 10 MG TABLET GT SCH (21:07)
[2017-01-15] MEDS: CARBIDOPA/LEV CR 50/200 MG 1 UDTAB.SA GT SCH (21:08)
[2017-01-16] VITALS: BP 127/65
[2017-01-16] MEDS: ACETAMINOPHEN 325 MG TABLET PO SCH ×4 (00:23→12:00)
[2017-01-16] MEDS: PIPERACILLIN /TAZOBACTAM 2.25 G in IV D5W 50 ML IV SCH ×3 (00:23→11:59)
[2017-01-16 00:38] VITALS: BP 127/65
[2017-01-16] MEDS: FIBERSOURCE HN 1,000 ML BOTTLE GT PRN (01:06)
[2017-01-16] MEDS: ALBUTEROL HALF STRENGTH 1.25 MG/3 ML VIAL.NEB NEB SCH ×4 (03:12→15:30)
[2017-01-16] MEDS: IPRATROPIUM NEB FS 0.5 MG/2.5 ML AMPUL.NEB NEB SCH ×4 (03:12→15:30)
[2017-01-16 05:00] VITALS: BP 142/80
[2017-01-16 06:26] VITALS: BP 142/80
[2017-01-16 07:17] LABS: CALCIUM, SERUM 8.4 mg/dL (8.5-10.1); CARBON DIOXIDE 36 mmol/L (21-32); CHLORIDE 103 mmol/L (98-107); CREATININE 0.5 mg/dL (0.6-1.3); GLUCOSE 158 mg/dL (74-106); POTASSIUM 4.2 mmol/L (3.5-5.1); SODIUM SERUM 143 mmol/L (136-145); UREA NITROGEN, BLOOD 24 mg/dL (7-18)
[2017-01-16 08:00] VITALS: BP 137/74
[2017-01-16] MEDS: PANTOPRAZOLE 40 MG/PACK PACK GT SCH (08:24)
[2017-01-16] MEDS: ZINC SULFATE 220 MG CAPSULE GT SCH (08:24)
[2017-01-16] MEDS: IRBESARTAN (150MG) 150 MG TABLET PO SCH (08:24)
[2017-01-16] MEDS: MULTIVITAMINS,THERAPEUTIC 1 UDTAB TABLET PO SCH (08:25)
[2017-01-16] MEDS: LOSARTAN POTASSIUM 50 MG TABLET PO SCH (08:25)
[2017-01-16] MEDS: LACTOBACILLUS RHAMNOSUS GG 1 EACH CAP.SPRINK GT SCH (08:25)
[2017-01-16] MEDS: buPROPion 75 MG TABLET GT SCH (08:25)
[2017-01-16] MEDS: ASCORBIC ACID 500 MG TABLET GT SCH (08:25)
[2017-01-16] MEDS: GALANTAMINE HYDROBROMIDE 4 MG TABLET GT SCH (08:26)
[2017-01-16] MEDS: methylPREDNISolone SOD SUCC 125 MG/2ML VIAL IV SCH (08:26)
[2017-01-16] MEDS: CARBIDOPA/LEVODOPA 25/250 MG 1 UDTAB GT SCH ×2 (08:27→12:00)
[2017-01-16 12:00] VITALS: BP 159/81
[2017-01-17] MEDS ORDERED: methylPREDNISolone SOD SUCC 125 MG/2ML VIAL IV SCH (09:00)
== END 2017-01-16 16:17 | DRG 871 ==
LOC: ER 20:49 → TELE-TD 23:00 → TELE1 01-15 12:28
PROVIDERS: ADMIT Internal Medicine; ATTEND Internal Medicine
PROC: 5A09457 Assistance with Respiratory Ventilation, 24-96 Consecutive Hours, Continuous Positive Airway Pressure (ICD-10-PCS; principal; 2017-01-12)
DX: A41.9 Sepsis, unspecified organism (principal); G93.40 Encephalopathy, unspecified; J18.9 Pneumonia, unspecified organism; J96.21 Acute and chronic respiratory failure with hypoxia; J96.22 Acute and chronic respiratory failure with hypercapnia; L89.153 Pressure ulcer of sacral region, stage 3; L89.323 Pressure ulcer of left buttock, stage 3; L89.313 Pressure ulcer of right buttock, stage 3; J44.0 Chronic obstructive pulmonary disease with (acute) lower respiratory infection; N39.0 Urinary tract infection, site not specified; E44.0 Moderate protein-calorie malnutrition; Z68.1 Body mass index [BMI] 19.9 or less, adult; J44.1 Chronic obstructive pulmonary disease with (acute) exacerbation; R65.20 Severe sepsis without septic shock; F03.90 Unspecified dementia, unspecified severity, without behavioral disturbance, psychotic disturbance, mood disturbance, and anxiety; I25.10 Atherosclerotic heart disease of native coronary artery without angina pectoris; G20 Parkinson's disease; R13.10 Dysphagia, unspecified; I10 Essential (primary) hypertension; Z66 Do not resuscitate; K21.9 Gastro-esophageal reflux disease without esophagitis; E78.5 Hyperlipidemia, unspecified; E87.6 Hypokalemia; F09 Unspecified mental disorder due to known physiological condition; Z93.1 Gastrostomy status
CPT/HCPCS: 31720; 36415; 36600; 71010-TC; 80048-TC; 80053-TC; 80061-TC; 80076-TC; 80202-TC; 82803-TC; 83605-TC; 83880; 84484-TC; 85025-TC; 85730-TC; 87040-TC; 87070-TC; 87081-TC; 87400; 92611-TC; 93307-TC; 94003-TC; 94640-TC; 94760-TC; 94799-TC; 99082-TC; A4606; A6253; A6403; J0456; J1940; J2543; J2930; J3370; J3490; J7040; J7050; J7060; Z7610

== ENCOUNTER 2017-03-22 11:42 | Inpatient (IN) | payer MEDICARE, MEDICAID ==
[~2017-03-22 11:42] MED LIST changes: +ACET-868 GT; +GALA12TA4 GT; +LANS30CA10 GT; +LOSA100T3 GT; +SACC250C6 GT; +ZINC220C8 GT; -ZINC220C8 PO
[2017-03-22] MEDS ORDERED: IV NS 0.9% 1,000 ML BAG IV ONE (12:00)
[2017-03-22] MEDS ORDERED: MULT-659 GT (12:20)
[2017-03-22] MEDS ORDERED: GALA4TAB5 GT (12:20)
[2017-03-22] MEDS ORDERED: IPRA3AMP IH (12:20)
[2017-03-22] MEDS ORDERED: CARB-96 PO (12:20)
[2017-03-22] MEDS ORDERED: CALC-7 GT (12:20)
[2017-03-22] MEDS ORDERED: LACT-209 GT (12:20)
[2017-03-22] MEDS ORDERED: PANT40SU2 GT (12:20)
[2017-03-22] MEDS ORDERED: PIPERACILLIN /TAZOBACTAM 3.375 G in IV D5W 50 ML IV ONE (13:30)
[2017-03-22] MEDS ORDERED: PIPERACILLIN /TAZOBACTAM 3.375 G VIAL IV ONE (13:41)
[2017-03-22] MEDS ORDERED: MAGNESIUM HYDROXIDE 30 ML UDC GT PRN (17:30)
[2017-03-22] MEDS ORDERED: ACETAMINOPHEN LIQUID 325 MG/10.1 ML UDC GT PRN (17:30)
[2017-03-22] MEDS ORDERED: FIBERSOURCE HN 1,000 ML BOTTLE GT PRN (17:30)
[2017-03-22] MEDS ORDERED: DOCUSATE SODIUM LIQ 100 MG/10 ML UDC GT SCH (17:30)
[2017-03-22] MEDS ORDERED: CARBIDOPA/LEVODOPA 25/250 MG 1 UDTAB GT SCH (17:30)
[2017-03-22] MEDS ORDERED: BISACODYL SUPP (10 MG) 10 MG/SUPP.RECT SUPP.RECT RC PRN (17:30)
[2017-03-22] MEDS ORDERED: NA PHOS,M-B/NA PHOS,DI-BA 1 EA ENEMA RC PRN (17:30)
[2017-03-22] MEDS ORDERED: ACETAMINOPHEN 650 MG/20.3 ML UDC GT PRN (18:00)
[2017-03-22] MEDS: CARBIDOPA/LEVODOPA 25/250 MG 1 UDTAB GT SCH (18:49)
[2017-03-22] MEDS: IPRATROPIUM NEB FS 0.5 MG/2.5 ML AMPUL.NEB NEB SCH ×2 (19:52→23:07)
[2017-03-22] MEDS: ALBUTEROL FS 2.5 MG/3 ML VIAL.NEB NEB SCH ×2 (19:52→23:07)
[2017-03-22] MEDS ORDERED: CARBIDOPA/LEV CR 50/200 MG 1 UDTAB.SA PO SCH (22:00)
[2017-03-22] MEDS: ATORVASTATIN 10 MG TABLET GT SCH (22:19)
[2017-03-22] MEDS: CARBIDOPA/LEV CR 50/200 MG 1 UDTAB.SA PO SCH (22:19)
[2017-03-22] MEDS: QUETIAPINE FUMARATE 25 MG TABLET GT SCH (22:20)
[2017-03-23] MEDS: IPRATROPIUM NEB FS 0.5 MG/2.5 ML AMPUL.NEB NEB SCH ×6 (03:48→22:56)
[2017-03-23] MEDS: ALBUTEROL FS 2.5 MG/3 ML VIAL.NEB NEB SCH ×6 (03:48→22:56)
[2017-03-23] MEDS: CARBIDOPA/LEVODOPA 25/250 MG 1 UDTAB GT SCH ×3 (09:10→17:28)
[2017-03-23] MEDS: ZINC SULFATE 220 MG CAPSULE GT SCH (09:10)
[2017-03-23] MEDS: ASCORBIC ACID 500 MG TABLET GT SCH (09:11)
[2017-03-23] MEDS: LACTOBACILLUS RHAMNOSUS GG 1 EACH CAP.SPRINK GT SCH ×2 (09:11→17:28)
[2017-03-23] MEDS: buPROPion 75 MG TABLET GT SCH ×2 (09:11→17:28)
[2017-03-23] MEDS: MULTIVIT, IRON, MIN NO. 8, FA 1 TAB GT SCH (09:11)
[2017-03-23] MEDS: LOSARTAN POTASSIUM 50 MG TABLET GT SCH (09:11)
[2017-03-23] MEDS: GALANTAMINE HYDROBROMIDE 4 MG TABLET GT SCH ×3 (09:12→17:28)
[2017-03-23] MEDS: CALCIUM CARB 250MG /VITAMIN D 1 UDTAB GT SCH (09:12)
[2017-03-23] MEDS ORDERED: PANTOPRAZOLE 40 MG/PACK PACK GT SCH (11:30)
[2017-03-23] MEDS: DOCUSATE SODIUM LIQ 100 MG/10 ML UDC GT SCH (17:32)
[2017-03-23] MEDS: FIBERSOURCE HN 1,000 ML BOTTLE GT PRN (17:42)
[2017-03-23] MEDS: QUETIAPINE FUMARATE 25 MG TABLET GT SCH (21:35)
[2017-03-23] MEDS: CARBIDOPA/LEV CR 50/200 MG 1 UDTAB.SA PO SCH (21:35)
[2017-03-23] MEDS: ATORVASTATIN 10 MG TABLET GT SCH (21:35)
[2017-03-24] MEDS: IPRATROPIUM NEB FS 0.5 MG/2.5 ML AMPUL.NEB NEB SCH ×6 (03:42→22:51)
[2017-03-24] MEDS: ALBUTEROL FS 2.5 MG/3 ML VIAL.NEB NEB SCH ×6 (03:42→22:51)
[2017-03-24] MEDS: LOSARTAN POTASSIUM 50 MG TABLET GT SCH (08:43)
[2017-03-24] MEDS: LACTOBACILLUS RHAMNOSUS GG 1 EACH CAP.SPRINK GT SCH ×2 (08:51→17:34)
[2017-03-24] MEDS: ASCORBIC ACID 500 MG TABLET GT SCH (08:51)
[2017-03-24] MEDS: ZINC SULFATE 220 MG CAPSULE GT SCH (08:51)
[2017-03-24] MEDS: GALANTAMINE HYDROBROMIDE 4 MG TABLET GT SCH ×3 (08:51→17:35)
[2017-03-24] MEDS: MULTIVIT, IRON, MIN NO. 8, FA 1 TAB GT SCH (08:52)
[2017-03-24] MEDS: CALCIUM CARB 250MG /VITAMIN D 1 UDTAB GT SCH (08:53)
[2017-03-24] MEDS: CARBIDOPA/LEVODOPA 25/250 MG 1 UDTAB GT SCH ×3 (08:53→17:35)
[2017-03-24] MEDS: buPROPion 75 MG TABLET GT SCH ×2 (08:53→17:35)
[2017-03-24] MEDS: PROSOURCE / PROSTAT (PYXIS) 30 ML UDC GT SCH (08:53)
[2017-03-24] MEDS: Z GUARD REMEDY 2 OZ OINT TP PRN ×3 (08:59→17:35)
[2017-03-24] MEDS: DOCUSATE SODIUM LIQ 100 MG/10 ML UDC GT SCH ×2 (08:59→17:34)
[2017-03-24] MEDS: FIBERSOURCE HN 1,000 ML BOTTLE GT PRN (17:43)
[2017-03-24] MEDS ORDERED: PIPERACILLIN /TAZOBACTAM 3.375 G in IV D5W 50 ML IV SCH (19:00)
[2017-03-24] MEDS ORDERED: FEE PK DOSING 1 MIN EA MC ONE (19:23)
[2017-03-24] MEDS: VANCOMYCIN 0.75 GM in IV D5W 250 ML IV SCH (20:43)
[2017-03-24] MEDS: FLUCONAZOLE (100 MG) 100 MG TABLET PO SCH (20:44)
[2017-03-24] MEDS: ATORVASTATIN 10 MG TABLET GT SCH (21:13)
[2017-03-24] MEDS: QUETIAPINE FUMARATE 25 MG TABLET GT SCH (21:13)
[2017-03-24] MEDS: CARBIDOPA/LEV CR 50/200 MG 1 UDTAB.SA PO SCH (21:14)
[2017-03-24] MEDS: PIPERACILLIN /TAZOBACTAM 3.375 G in IV D5W 50 ML IV SCH (21:36)
[2017-03-25] MEDS: ALBUTEROL FS 2.5 MG/3 ML VIAL.NEB NEB SCH ×6 (03:01→23:46)
[2017-03-25] MEDS: IPRATROPIUM NEB FS 0.5 MG/2.5 ML AMPUL.NEB NEB SCH ×6 (03:01→23:46)
[2017-03-25] MEDS: PIPERACILLIN /TAZOBACTAM 3.375 G in IV D5W 50 ML IV SCH ×3 (05:01→17:00)
[2017-03-25] MEDS: DOCUSATE SODIUM LIQ 100 MG/10 ML UDC GT SCH ×2 (08:23→16:56)
[2017-03-25] MEDS: LACTOBACILLUS RHAMNOSUS GG 1 EACH CAP.SPRINK GT SCH ×2 (08:23→16:56)
[2017-03-25] MEDS: LOSARTAN POTASSIUM 50 MG TABLET GT SCH (08:24)
[2017-03-25] MEDS: MULTIVIT, IRON, MIN NO. 8, FA 1 TAB GT SCH (08:24)
[2017-03-25] MEDS: CALCIUM CARB 250MG /VITAMIN D 1 UDTAB GT SCH (08:24)
[2017-03-25] MEDS: CARBIDOPA/LEVODOPA 25/250 MG 1 UDTAB GT SCH ×3 (08:24→16:56)
[2017-03-25] MEDS: ASCORBIC ACID 500 MG TABLET GT SCH (08:24)
[2017-03-25] MEDS: buPROPion 75 MG TABLET GT SCH ×2 (08:24→16:56)
[2017-03-25] MEDS: FLUCONAZOLE (100 MG) 100 MG TABLET PO SCH (08:24)
[2017-03-25] MEDS: GALANTAMINE HYDROBROMIDE 4 MG TABLET GT SCH ×3 (08:28→16:56)
[2017-03-25] MEDS: PROSOURCE / PROSTAT (PYXIS) 30 ML UDC GT SCH (08:28)
[2017-03-25] MEDS: ZINC SULFATE 220 MG CAPSULE GT SCH (08:28)
[2017-03-25] MEDS: VANCOMYCIN 0.75 GM in IV D5W 250 ML IV SCH ×2 (08:29→20:22)
[2017-03-25] MEDS: FIBERSOURCE HN 1,000 ML BOTTLE GT PRN (14:34)
[2017-03-25] MEDS: IV NS 0.9% 250 ML IV PRN (20:23)
[2017-03-25] MEDS: ATORVASTATIN 10 MG TABLET GT SCH (22:13)
[2017-03-25] MEDS: CARBIDOPA/LEV CR 50/200 MG 1 UDTAB.SA PO SCH (22:13)
[2017-03-25] MEDS: QUETIAPINE FUMARATE 25 MG TABLET GT SCH (22:14)
[2017-03-26] MEDS: PIPERACILLIN /TAZOBACTAM 3.375 G in IV D5W 50 ML IV SCH ×5 (00:22→23:32)
[2017-03-26] MEDS: ALBUTEROL FS 2.5 MG/3 ML VIAL.NEB NEB SCH ×6 (03:21→23:38)
[2017-03-26] MEDS: IPRATROPIUM NEB FS 0.5 MG/2.5 ML AMPUL.NEB NEB SCH ×6 (03:22→23:38)
[2017-03-26] MEDS: FIBERSOURCE HN 1,000 ML BOTTLE GT PRN ×2 (03:41→22:49)
[2017-03-26] MEDS: LACTOBACILLUS RHAMNOSUS GG 1 EACH CAP.SPRINK GT SCH ×2 (08:29→16:59)
[2017-03-26] MEDS: VANCOMYCIN 0.75 GM in IV D5W 250 ML IV SCH ×2 (08:29→20:33)
[2017-03-26] MEDS: DOCUSATE SODIUM LIQ 100 MG/10 ML UDC GT SCH ×2 (08:29→17:00)
[2017-03-26] MEDS: ZINC SULFATE 220 MG CAPSULE GT SCH (08:29)
[2017-03-26] MEDS: GALANTAMINE HYDROBROMIDE 4 MG TABLET GT SCH ×3 (08:30→16:59)
[2017-03-26] MEDS: CALCIUM CARB 250MG /VITAMIN D 1 UDTAB GT SCH (08:30)
[2017-03-26] MEDS: ASCORBIC ACID 500 MG TABLET GT SCH (08:30)
[2017-03-26] MEDS: FLUCONAZOLE (100 MG) 100 MG TABLET PO SCH (08:30)
[2017-03-26] MEDS: buPROPion 75 MG TABLET GT SCH ×2 (08:30→16:59)
[2017-03-26] MEDS: CARBIDOPA/LEVODOPA 25/250 MG 1 UDTAB GT SCH ×3 (08:30→17:00)
[2017-03-26] MEDS: MULTIVIT, IRON, MIN NO. 8, FA 1 TAB GT SCH (08:30)
[2017-03-26] MEDS: PROSOURCE / PROSTAT (PYXIS) 30 ML UDC GT SCH (08:30)
[2017-03-26] MEDS: LOSARTAN POTASSIUM 50 MG TABLET GT SCH (08:31)
[2017-03-26] MEDS: IV NS 0.9% 250 ML IV PRN (20:33)
[2017-03-26] MEDS: QUETIAPINE FUMARATE 25 MG TABLET GT SCH (21:30)
[2017-03-26] MEDS: CARBIDOPA/LEV CR 50/200 MG 1 UDTAB.SA PO SCH (21:30)
[2017-03-26] MEDS: ATORVASTATIN 10 MG TABLET GT SCH (21:30)
[2017-03-27] MEDS: IPRATROPIUM NEB FS 0.5 MG/2.5 ML AMPUL.NEB NEB SCH ×4 (03:10→15:24)
[2017-03-27] MEDS: ALBUTEROL FS 2.5 MG/3 ML VIAL.NEB NEB SCH ×4 (03:10→15:24)
[2017-03-27] MEDS: PIPERACILLIN /TAZOBACTAM 3.375 G in IV D5W 50 ML IV SCH ×2 (05:18→12:40)
[2017-03-27] MEDS: PROSOURCE / PROSTAT (PYXIS) 30 ML UDC GT SCH (08:10)
[2017-03-27] MEDS: DOCUSATE SODIUM LIQ 100 MG/10 ML UDC GT SCH (08:10)
[2017-03-27] MEDS: MULTIVIT, IRON, MIN NO. 8, FA 1 TAB GT SCH (08:10)
[2017-03-27] MEDS: ZINC SULFATE 220 MG CAPSULE GT SCH (08:10)
[2017-03-27] MEDS: ASCORBIC ACID 500 MG TABLET GT SCH (08:10)
[2017-03-27] MEDS: CALCIUM CARB 250MG /VITAMIN D 1 UDTAB GT SCH (08:11)
[2017-03-27] MEDS: GALANTAMINE HYDROBROMIDE 4 MG TABLET GT SCH ×2 (08:11→13:52)
[2017-03-27] MEDS: buPROPion 75 MG TABLET GT SCH (08:11)
[2017-03-27] MEDS: LACTOBACILLUS RHAMNOSUS GG 1 EACH CAP.SPRINK GT SCH (08:11)
[2017-03-27] MEDS: VANCOMYCIN 0.75 GM in IV D5W 250 ML IV SCH (08:12)
[2017-03-27] MEDS: FLUCONAZOLE (100 MG) 100 MG TABLET PO SCH (08:12)
[2017-03-27] MEDS: CARBIDOPA/LEVODOPA 25/250 MG 1 UDTAB GT SCH ×2 (08:12→13:52)
[2017-03-27] MEDS: LOSARTAN POTASSIUM 50 MG TABLET GT SCH (08:22)
[2017-03-27] MEDS ORDERED: DIATR MEGLU/DIATRIZOATE SODIUM 30 ML BOTTLE (GASTROGRAPHIN) ONE (12:27)
[2017-03-27] MEDS: FIBERSOURCE HN 1,000 ML BOTTLE GT PRN (13:57)
== END 2017-03-27 17:05 | DRG 393 ==
DX: K94.23 Gastrostomy malfunction (principal); A41.9 Sepsis, unspecified organism; J96.21 Acute and chronic respiratory failure with hypoxia; J69.0 Pneumonitis due to inhalation of food and vomit; L89.159 Pressure ulcer of sacral region, unspecified stage; G93.40 Encephalopathy, unspecified; E44.0 Moderate protein-calorie malnutrition; Z68.1 Body mass index [BMI] 19.9 or less, adult; E78.5 Hyperlipidemia, unspecified; F02.80 Dementia in other diseases classified elsewhere, unspecified severity, without behavioral disturbance, psychotic disturbance, mood disturbance, and anxiety; F09 Unspecified mental disorder due to known physiological condition; G20 Parkinson's disease; I10 Essential (primary) hypertension; I25.10 Atherosclerotic heart disease of native coronary artery without angina pectoris; R13.10 Dysphagia, unspecified; Z87.01 Personal history of pneumonia (recurrent); Z79.899 Other long term (current) drug therapy; K21.9 Gastro-esophageal reflux disease without esophagitis; D64.9 Anemia, unspecified; B37.9 Candidiasis, unspecified; Y83.3 Surgical operation with formation of external stoma as the cause of abnormal reaction of the patient, or of later complication, without mention of misadventure at the time of the procedure; Y81.8 Miscellaneous general- and plastic-surgery devices associated with adverse incidents, not elsewhere classified; Y92.129 Unspecified place in nursing home as the place of occurrence of the external cause

== ENCOUNTER 2017-04-16 16:55 | Emergency (ER) | payer MEDICARE, MEDICAID ==
[~2017-04-16] VITALS: Ht 172.7 cm; Wt 56.7 kg
[~2017-04-16 16:55] MED LIST changes: +CALC-7 GT; +CARB-96 PO; -CARB1TAB60 GT; -GALA12TA PO; -GALA12TA4 GT; +GALA4TAB5 GT; +IPRA3AMP IH; -IRBE300T19 PO; +LACT-209 GT; -LANS30CA10 GT; -MULT-24 PO; +MULT-659 GT; -OMEP20CA10 PO; +PANT40SU2 GT
--- NOTE | 2017-04-16 16:55 | NUR ---
rena 84 sent by Wilbur from [facility] c/o desaturation. Placed on monitor. Gowned pt. awaiting md order.
--- NOTE | 2017-04-16 17:00 | NUR ---
neeru #[id number] iv access. blood sample collected sent to lab
--- NOTE | 2017-04-16 17:00 | NUR ---
pt on 15 lpm non rebreather mask . pale. declining rapidly apneic . dr nye aware.
--- NOTE | 2017-04-16 17:01 | NUR ---
per dr nye no need for crawford pt transitioning. pt dnr .dni
[2017-04-16 17:26] LABS: HEMATOCRIT 36 % (33-45); HEMOGLOBIN 10.9 g/dL (11.5-14.8); LYMPHOCYTES # (AUTO) 0.7 /CMM (0.8-4.8); LYMPHOCYTES % (AUTO) 2.5 % (20.0-44.0); MEAN CORPUSCULAR HEMOGLOBIN 28 PG (26.0-33.0); MEAN CORPUSCULAR HGB CONC 31 g/dl (31.0-36.0); MEAN CORPUSCULAR VOLUME 91 fL (82-100); MONOCYTES # (AUTO) 1.1 /CMM (0.1-1.30); MONOCYTES % (AUTO) 4.3 % (2.0-12.0); NEUTROPHILS # (AUTO) 24.7 /CMM (1.8-8.9); NEUTROPHILS % (AUTO) 93.2 % (43.0-81.0); PLATELET COUNT (AUTO) 259 /CMM (150-450); RDW COEFFICIENT OF VARIATION 15.2 (11.5-15.0); RED BLOOD CELL COUNT(AUTO) 3.95 MIL/uL (4.0-5.2); WHITE BLOOD COUNT (AUTO) 26.5 K/uL (4.3-11.0)
[2017-04-16 17:27] LABS: PROTHROMBIN TIME 10.4 SECS (9.5-12.7)
[2017-04-16 17:29] LABS: ALKALINE PHOSPHATASE 139 U/L (46-116); ASPARTATE AMINOTRANSFERASE 14 U/L (15-37); BILIRUBIN,TOTAL 0.2 mg/dL (0.2-1.0); CALCIUM, SERUM 9.1 mg/dL (8.5-10.1); CHLORIDE 103 mmol/L (98-107); CREATININE 0.6 mg/dL (0.6-1.3); GLUCOSE 195 mg/dL (74-106); POTASSIUM 4.1 mmol/L (3.5-5.1); SODIUM SERUM 147 mmol/L (136-145); UREA NITROGEN, BLOOD 26 mg/dL (7-18)
[2017-04-16 17:31] LABS: TROPONIN I < 0.017 ng/mL (0.00-0.056)
[2017-04-16 17:48] LABS: ALANINE AMINOTRANSFERASE < 6 U/L (12-78)
[2017-04-16 17:50] LABS: CARBON DIOXIDE 47 mmol/L (21-32)
--- NOTE | 2017-04-16 18:01 | NUR ---
DAUGHTER AT BEDSIDE PT DNR /DNI
--- NOTE | 2017-04-16 18:14 | NUR ---
NOTIFIED DR. MARINELLI VIA EXCHANGE; WILL PAGE PATTY PER EXCHAGE
[2017-04-16 18:24] LABS: BAND % (MANUAL) 2 % (0.0-5.0); EOSINOPHILS % (MANUAL) 2 % (0-4); LYMPHOCYTES % (MANUAL) 5 % (16-48); MONOCYTES % (MANUAL) 3 % (0-11.0); NEUTROPHILS % (MANUAL) 88 (42-76)
--- NOTE | 2017-04-16 19:22 | NUR ---
Per Aaron MORA am shift, patient's time of is [id number]. Family surrounding patient at bedside.
[2017-04-16 20:40] VITALS: BP 0/0
== END 2017-04-16 20:41 | disposition expired ==
LOC: ER 16:56
DX: J96.00 Acute respiratory failure, unspecified whether with hypoxia or hypercapnia (principal); D64.9 Anemia, unspecified; J18.9 Pneumonia, unspecified organism; E78.5 Hyperlipidemia, unspecified; F03.90 Unspecified dementia, unspecified severity, without behavioral disturbance, psychotic disturbance, mood disturbance, and anxiety; F29 Unspecified psychosis not due to a substance or known physiological condition; G20 Parkinson's disease; I10 Essential (primary) hypertension; J84.9 Interstitial pulmonary disease, unspecified; J96.10 Chronic respiratory failure, unspecified whether with hypoxia or hypercapnia; K21.9 Gastro-esophageal reflux disease without esophagitis; Z93.1 Gastrostomy status
CPT/HCPCS: 36415; 51702; 71010; 80048; 80076; 83605; 84484; 85025; 85730; 87040 ×2; 93005; 99291; A4606; Z7610